=== PATIENT | male | born 1940 | race Caucasian/White ===

== ENCOUNTER 2017-09-02 09:45 | Emergency (ER) | payer MEDICARE, BC ==
[2017-09-02] MEDS ORDERED: Diltiazem IV* 5 MG/ML 5 ML VIAL (for loading dose/IV Push) (25 MG) IV SLOW PU ONE (10:20)
[2017-09-02] MEDS ORDERED: Diltiazem DRIP* 100 MG/100 ML ADDV.BAG IVPB ONE (10:20)
[2017-09-02 10:42] LABS: ABS Basophils 0.1 10^3/ul (0-0.2); ABS Eosinophils 0.1 10^3/ul (0-0.6); ABS Lymphocytes 1.2 10^3/ul (1.0-4.8); ABS Monocytes 0.6 10^3/ul (0-0.8); ABS Neutrophils 2.1 10^3/ul (1.5-7.7); ABS Nucleated RBC 0 10^3/ul; Hematocrit 44 % (42-52); Hemoglobin 15.4 g/dl (14.0-18.0); Lymphocyte % 30.1 % (25-47); Mean Corpuscular HGB Conc 35 g/dl (31-36); Mean Corpuscular Hemoglobin 33 pg (27-31); Mean Corpuscular Volume 92 fL (80-94); Mean Platelet Volume 9.5 um3 (7.4-10.4); Nucleated Red Blood Cells % 0.1; Platelet Count 118 10^3/ul (150-450); Red Blood Count 4.72 10^6/ul (4.00-5.40); Red Cell Distribution Width 13 % (10.5-15); White Blood Count 4.1 10^3/ul (3.5-10.8)
[2017-09-02 10:47] LABS: INR 1.14 (0.77-1.02)
[2017-09-02 10:59] LABS: EGFR Non-African American 84.2 (>60)
[2017-09-02] MEDS ORDERED: Diltiazem IV VIAL* 125 MG in NS 0.9% 100 ML* 100 ML IV ONE (11:00)
--- NOTE | 2017-09-02 11:00 | RAD ---
HISTORY: a-fib COMPARISONS: November 27, 2014 VIEWS: 1: frontal portable view of the chest at 10:45 AM FINDINGS: LINES AND TUBES: None. CARDIOMEDIASTINAL SILHOUETTE: The cardiomediastinal silhouette is normal for portable technique. PLEURA: The costophrenic angles are sharp. No pleural abnormalities are noted. LUNG PARENCHYMA: The lungs are clear. ABDOMEN: The upper abdomen is clear. There is no subphrenic gas. BONES AND SOFT TISSUES: No bone or soft tissue abnormalities are noted. IMPRESSION: NO ACTIVE CARDIOPULMONARY DISEASE.
[2017-09-02] MEDS ORDERED: fentaNYL* 50 MCG/ML 2 ML VIAL (100 MCG VIAL) ONE (13:27)
[2017-09-02] MEDS ORDERED: Midazolam* 1 MG/ML 10 ML VIAL (10 MG) ONE (13:28)
--- NOTE | 2017-09-02 14:54 | CARD ---
CC: Dr. Lopez; Dr. Estrada PROCEDURE REPORT: DATE OF PROCEDURE: 09/02/17. PROCEDURE: Cardioversion. INDICATIONS: This is a 76-year-old gentleman who recognized that he was in atrial fibrillation this am and presented to the emergency room. He was n.p.o. since last night. Informed consent was obtained. Patient was fasting. He was premedicated with 4 mg of Versed and 25 mcg of fentanyl. A single synchronized biphasic shock of 120 joules was applied with successful conversion to sinus rhythm. IMPRESSION: Successful conversion to sinus rhythm from atrial fibrillation. Given the patient's complaints of lightheadedness on losartan, I suggested that we continue with metoprolol 50 mg 1/2 a tablet a day and hold the losartan temporarily. We will have to reevaluate his blood pressure requirements and optimal medications as an outpatient. He has an outpatient visit scheduled in September. [id number]/[facility] #: [id number] MTDD
--- NOTE | 2017-09-02 14:54 | CONS ---
CC: Dr. Manpreet Lopez; Dr. Estrada CARDIOLOGY CONSULTATION: DATE OF CONSULT: 09/02/17 HISTORY OF PRESENT ILLNESS: This is a 76-year-old gentleman with a history of hypertension, paroxysmal atrial fibrillation, and recurrent AFib. He had his last cardioversion in May. He said recently he was started on losartan and has had problems with lightheadedness. He cut both his losartan and Toprol in half at times because of dizziness and has had trouble tolerating his medications. He has also had a tendency towards bradycardia on his medications. He says that yesterday he felt tired, but did not realize he was in AFib. He said this morning he noticed that he was irregular and he was lightheaded with standing. He has had no chest pain, no syncope or orthopnea. No interval new medical problems. PAST MEDICAL HISTORY: Includes hyperlipidemia, paroxysmal atrial fibrillation, hypertension, sinus node dysfunction. MEDICATIONS: Include: 1. Toprol 50 mg a day. He has been cutting this in half. 2. Losartan 100 mg a day. He has been cutting this in half. 3. Xarelto 20 mg in the evening. 4. Simvastatin 20 mg at night. ALLERGIES: He has no known drug allergies. ROS x10 negative except as above. PHYSICAL EXAM: He is a well-developed, well-nourished gentleman, in no apparent distress. No significant JVD. Cardiac Exam: S1, S2, without murmurs , gallops, or rubs. Chest was clear. Extremities: No edema. His blood pressure is 111/63 with a heart rate in the 70s after getting IV diltiazem. IMPRESSION AND PLAN: I discussed with the patient options for treatment. Given that he has been on anticoagulation, the duration of the atrial fibrillation is relatively brief, I suggested attempt at cardioversion, which was agreeable to the patient. We also discussed the importance of adjusting his regimen to try to avoid varying his beta-kj and beta-kj withdrawal. He also a tendency towards tachy and di and may require a pacemaker at some point. For the time being, I would recommend the following: We would suggest reducing his metoprolol to 25 mg a day given his predisposition to bradycardia. He is to hold his losartan for the time being and we will reevaluate his blood pressures. He may require a lower dose. He is to avoid caffeine and alcohol as he has been doing. He is to avoid dehydration. He understands the potential need for pacemaker if he continues to have tachy and bradyarrhythmias. Medical decision making moderately complex. [id number]/[facility] #: [id number] SHAYNA
[2017-09-02 15:17] VITALS: BP 101/64
--- NOTE | 2017-09-02 18:19 | ED ---
Sravan Banks Tariq, scribed for Vaibhav Dee MD on 09/02/17 at 1029 . HPI Cardiac - HPI Summary HPI Summary: A 76 y/o male presents to the ED c/o palpitations characterized as irregular, similar to episodes of A Fib. Pt stated that he not normally in A-fib. Additionally notes that when he stands up, he becomes dizzy. He also feels pressure in his chest, blood pressure is fluctuating and "it doesn't feel right ". His BP has been on the low end all week. Laying down helps alleviate Sx. In the past he has been cardioverted. Currently on Cirralto. PMHx HTN - on metoprolol. - History of Current Complaint Chief Complaint: EDDysrhythmPalp Stated Complaint: IRREGULAR HEARTBEAT Time Seen by Provider: 09/02/17 10:08 Hx Obtained From: Patient Onset/Duration: Started Days Ago, Still Present Timing: Intermittent Current Severity: None Pain Intensity: 0 Pain Scale Used: 0-10 Numeric Chest Pain Radiates: No Character: Pressure/Squeezing - Pressure Aggravating Factor(s): Nothing Alleviating Factor(s): Rest, Position - Laying down Associated Signs and Symptoms: Positive: Palpitations, Other: - fluctuating BP - Allergy/Home Medications Allergies/Adverse Reactions: Allergies Allergy/AdvReac Type Severity Reaction Status Date / Time No Known Allergies Allergy Verified 09/02/17 09:59 Home Medications: Home Medications Glucosamine CAP (NF) 1 cap PO DAILY 09/02/17 [History Confirmed 09/02/17] Losartan TAB* [Cozaar TAB*] 100 mg PO QAM 09/02/17 [History Confirmed 09/02/17] Metoprolol Succinate XL TAB* [Toprol XL TAB*] 50 mg PO DAILY 09/02/17 [History Confirmed 09/02/17] Nesbit-3 Fatty Acids (Nf) [Fish Oil (NF)] 1,000 mg PO DAILY 09/02/17 [History Confirmed 09/02/17] Rivaroxaban TAB(*) [Xarelto 20 mg] 20 mg PO DAILY 09/02/17 [History Confirmed ] PMH/Surg Hx/FS Hx/Imm Hx Endocrine/Hematology History: Denies: Hx Anticoagulant Therapy, Other Endocrine/Hematological Disorders Cardiovascular History: Reports: Hx Atrial Fibrillation, Hx Hypercholesterolemia , Hx Hypertension, Other Cardiovascular Problems/Disorders - Heart Murmur; A-Fib Respiratory History: Denies: Other Respiratory Problems/Disorders GI History: Denies: Other GI Disorders History: Denies: Other Problems/Disorders Musculoskeletal History: Reports: Hx Arthritis - GENERALIZED Denies: Other Musculoskeletal History Sensory History: Reports: Hx Cataracts - BILATERAL, Hx Contacts or Glasses Denies: Hx Hearing Aid Opthamlomology History: Reports: Hx Cataracts - BILATERAL, Hx Contacts or Glasses Neurological History: Denies: Other Neuro Impairments/Disorders Psychiatric History: Denies: Other Psychiatric Issues/Disorders - Cancer History Cancer Type, Location and Year: prostate Hx Hematologic Symptoms: No Hx Chemotherapy: No Hx Radiation Therapy: No - Surgical History Surgery Procedure, Year, and Place: Prostate removed Hx Anesthesia Reactions: No Infectious Disease History: Yes Infectious Disease History: Denies: Traveled Outside the [place] in Last 30 Days - Family History Known Family History: Positive: Other - CHF Negative: Diabetes - Social History Alcohol Use: Occasionally Substance Use Type: Reports: None Smoking Status (MU): Never Smoked Tobacco Review of Systems Constitutional: Other - BP fluctuating Cardiovascular: Other - Pressure in chest Positive: Palpitations Neurological: Other - Dizziness All Other Systems Reviewed And Are Negative: Yes Physical Exam - Summary Physical Exam Summary: Appearance: The patient is well-nourished in no acute distress and in no acute pain. Skin: The skin is warm and dry and skin color reflects adequate perfusion. HEENT: The head is normocephalic and atraumatic. The pupils are equal and reactive. The conjunctivae are clear and without drainage. Nares are patent and without drainage. Mouth reveals moist mucous membranes and the throat is without erythema and exudate. The external ears are intact. The ear canals are patent and without drainage. The tympanic membranes are intact. Neck: The neck is supple with full range of motion and non-tender. There are no carotid bruits. There is no neck vein distension. Respiratory: Chest is non-tender. Lungs are clear to auscultation and breath sounds are symmetrical and equal. Cardiovascular: Heart rate is rapid and regularly irregular. There is no murmur or rub auscultated. There is no peripheral edema and pulses are symmetrical and equal. Abdomen: The abdomen is soft and non-tender. There are normal bowel sounds heard in all four quadrants and there is no organomegaly palpated. Musculoskeletal: There is no back tenderness noted. Extremities are non-tender with full range of motion. There is good capillary refill. There is no peripheral edema or calf tenderness elicited. Neurological: Patient is alert and oriented to person, place and time. The patient has symmetrical motor strength in all four extremities. Cranial nerves are grossly intact. Deep tendon reflexes are symmetrical and equal in all four extremities. Psychiatric: The patient has an appropriate affect and does not exhibit any anxiety or depression. Triage Information Reviewed: Yes Vital Signs On Initial Exam: Initial Vitals Temp Pulse Resp BP Pulse Ox 97.3 F 47 16 136/101 97 09/02/17 09:52 09/02/17 09:52 09/02/17 09:52 09/02/17 09:52 09/02/17 09:52 Vital Signs Reviewed: Yes Diagnostics - Vital Signs Vital Signs Temp Pulse Resp BP Pulse Ox 09/02/17 10:01 89 19 106/72 98 09/02/17 09:52 97.3 F 47 16 136/101 97 - Laboratory Lab Results: Lab Results 09/02/17 09/02/17 09/02/17 Range/Units 10:35 10:35 10:35 WBC 4.1 (3.5-10.8) 10^3/ul RBC 4.72 (4.00-5.40) 10^6/ul Hgb 15.4 (14.0-18.0) g/dl Hct 44 (42-52) % MCV 92 (80-94) fL MCH 33 H (27-31) pg MCHC 35 (31-36) g/dl RDW 13 (10.5-15) % Plt Count 118 L (150-450) 10^3/ul MPV 9.5 (7.4-10.4) um3 Neut % (Auto) 51.3 (38-83) % Lymph % (Auto) 30.1 (25-47) % [place] % (Auto) 13.4 H (0-7) % Eos % (Auto) 3.0 (0-6) % Baso % (Auto) 2.2 H (0-2) % Absolute Neuts (auto) 2.1 (1.5-7.7) 10^3/ul Absolute Lymphs (auto) 1.2 (1.0-4.8) 10^3/ul Absolute Monos (auto) 0.6 (0-0.8) 10^3/ul Absolute Eos (auto) 0.1 (0-0.6) 10^3/ul Absolute Basos (auto) 0.1 (0-0.2) 10^3/ul Absolute Nucleated RBC 0 10^3/ul Nucleated RBC % 0.1 INR (Anticoag Therapy) (0.77-1.02) Sodium 137 (135-145) mmol/L Potassium 4.0 (3.5-5.0) mmol/L Chloride 107 (101-111) mmol/L Carbon Dioxide 25 (22-32) mmol/L Anion Gap 5 (2-11) mmol/L BUN 18 (6-24) mg/dL Creatinine 0.88 (0.67-1.17) mg/dL Est GFR ( Amer) 108.3 (>60) Est GFR (Non-Af Amer) 84.2 (>60) BUN/Creatinine Ratio 20.5 H (8-20) Glucose 120 H (70-100) mg/dL Lactic Acid 1.2 (0.5-2.0) mmol/L Calcium 8.9 (8.6-10.3) mg/dL Magnesium 2.1 (1.9-2.7) mg/dL Total Bilirubin 0.30 (0.2-1.0) mg/dL AST 18 (13-39) U/L ALT 14 (7-52) U/L Alkaline Phosphatase 43 (34-104) U/L Troponin I 0.01 (<0.04) ng/mL Total Protein 6.7 (6.4-8.9) g/dL Albumin 3.7 (3.2-5.2) g/dL Globulin 3.0 (2-4) g/dL Albumin/Globulin Ratio 1.2 (1-3) TSH 1.26 (0.34-5.60) mcIU/mL 09/02/17 Range/Units 10:35 WBC (3.5-10.8) 10^3/ul RBC (4.00-5.40) 10^6/ul Hgb (14.0-18.0) g/dl Hct (42-52) % MCV (80-94) fL MCH (27-31) pg MCHC (31-36) g/dl RDW (10.5-15) % Plt Count (150-450) 10^3/ul MPV (7.4-10.4) um3 Neut % (Auto) (38-83) % Lymph % (Auto) (25-47) % [place] % (Auto) (0-7) % Eos % (Auto) (0-6) % Baso % (Auto) (0-2) % Absolute Neuts (auto) (1.5-7.7) 10^3/ul Absolute Lymphs (auto) (1.0-4.8) 10^3/ul Absolute Monos (auto) (0-0.8) 10^3/ul Absolute Eos (auto) (0-0.6) 10^3/ul Absolute Basos (auto) (0-0.2) 10^3/ul Absolute Nucleated RBC 10^3/ul Nucleated RBC % INR (Anticoag Therapy) 1.14 H (0.77-1.02) Sodium (135-145) mmol/L Potassium (3.5-5.0) mmol/L Chloride (101-111) mmol/L Carbon Dioxide (22-32) mmol/L Anion Gap (2-11) mmol/L BUN (6-24) mg/dL Creatinine (0.67-1.17) mg/dL Est GFR ( Amer) (>60) Est GFR (Non-Af Amer) (>60) BUN/Creatinine Ratio (8-20) Glucose (70-100) mg/dL Lactic Acid (0.5-2.0) mmol/L Calcium (8.6-10.3) mg/dL Magnesium (1.9-2.7) mg/dL Total Bilirubin (0.2-1.0) mg/dL AST (13-39) U/L ALT (7-52) U/L Alkaline Phosphatase (34-104) U/L Troponin I (<0.04) ng/mL Total Protein (6.4-8.9) g/dL Albumin (3.2-5.2) g/dL Globulin (2-4) g/dL Albumin/Globulin Ratio (1-3) TSH (0.34-5.60) mcIU/mL Result Diagrams: 09/02/17 10:35 09/02/17 10:35 Lab Statement: Any lab studies that have been ordered have been reviewed, and results considered in the medical decision making process. - Radiology CXR Xray Interpretation: No Acute Changes Radiology Interpretation Completed By: Radiologist - IMPRESSION: NO ACTIVE CARDIOPULMONARY DISEASE. ED PHYSICIAN REVIEWED THIS RADIOLOGY REPORT. - EKG 0957 Cardiac Rate: Tachycardia - 126 bpm EKG Rhythm: Atrial Fibrillation EKG Interpretation: A-Fib with RVR Disposition - Course Course Of Treatment: Mr. Gonzalez presents complaining that he he is in atrial fibrillation. His only symptom is that he gets dizzy when he stands up and he just doesn't feel right. He denies chest pain or shortness of breath. This all began today. He was noted to be in atrial fibrillation with a variable rate from the 120s to the 150s. He was started on a Cardizem drip and this controlled his rate. He came in a little bit hypotensive and this improved with rate control. Dr. Lopez was contacted and came to the department and cardioverted him under conscious sedation. He tolerated this well and remained in a sinus rhythm while he recovered from conscious sedation. - Diagnoses Provider Diagnoses: Atrial fibrillation - Physician Notifications Discussed Care Of Patient With: Manpreet Lopez Time Discussed With Above Provider: 12:52 Instructed by Provider To: Other - Will come in and cardiovert the patient. - Critical Care Time Critical Care Time: 30-74 min Discharge - Sign-Out/Discharge Documenting (check all that apply): Discharge/Admit/Transfer - Discharge - Discharge Plan Condition: Stable Disposition: HOME Patient Education Materials: A-fib (Atrial Fibrillation) (ED) Referrals: Manpreet Lopez MD [Medical Doctor] - 3 Days Yemi Estrada MD [Primary Care Provider] - 3 Days Additional Instructions: RETURN TO ED FOR ANY NEW OR WORSENING SYMPTOMS. - Billing Disposition and Condition Condition: STABLE Disposition: Home The documentation as recorded by the Sravan pardo Tariq accurately reflects the service I personally performed and the decisions made by me, Vaibhav Dee MD.
== END 2017-09-02 15:26 | disposition home or self-care (01) ==
LOC: ED 09:45
DX: I48.91 Unspecified atrial fibrillation (principal); R42 Dizziness and giddiness; I95.9 Hypotension, unspecified; I10 Essential (primary) hypertension; Z79.899 Other long term (current) drug therapy; Z79.01 Long term (current) use of anticoagulants
CPT/HCPCS: 36415; 71045; 80053; 83605; 83735; 84443; 84484; 85025; 85610; 93005; 96374; 99285; J2250; J3010

== ENCOUNTER 2018-12-22 11:10 | Emergency (ER) | payer MEDICARE, BC ==
--- NOTE | 2018-12-22 12:08 | ED ---
Palpitations / Dysrhythmia - HPI Summary HPI Summary: The patient is a y/o M presenting to [facility] with a chief complaint of irregular heart rate today when he had a sudden onset of dizziness while at rest. He reports he is usually in normal sinus rhythm, but he has been experiencing intermittent episodes of atrial fibrillation. He additionally c/o shortness of but denies chest pain and edema. Currently, his symptoms are rated 0/10 in severity. He has not used anything to treat the afib for short-term, but he does have medication that he can use. He states he last had to be cardioverted approximately five weeks ago, but usually he has the episodes about once a year for the last ten years. His cullet washer is Dr. Lopez. PMHx: afib, HLD, HTN, heart murmur. Nonsmoker, occasional EtOH, no substance use. Medications reviewed (Eliquis, Metoprolol). Allergies noted. - History of Current Complaint Chief Complaint: EDDysrhythmPalp Hx Obtained From: Patient Onset/Duration: Sudden Onset, Lasting Minutes, Still Present Timing: Constant - this episode Severity Initially: Moderate Severity Currently: Moderate Character: Irregular Aggravating: Nothing Alleviating: Nothing Associated Signs & Symptoms: Dizzy, Shortness of Breath - Allergy/Home Medications Allergies/Adverse Reactions: Allergies Allergy/AdvReac Type Severity Reaction Status Date / Time No Known Allergies Allergy Verified 12/22/18 11:17 PMH/Surg Hx/FS Hx/Imm Hx Endocrine/Hematology History: Denies: Hx Anticoagulant Therapy, Hx Diabetes, Other Endocrine/Hematological Disorders Cardiovascular History: Reports: Hx Atrial Fibrillation, Hx Hypercholesterolemia , Hx Hypertension, Hx Valvular Heart Disease - "murmur all my life", Other Cardiovascular Problems/Disorders - Heart Murmur; A-Fib Denies: Hx Angina, Hx Coronary Artery Disease, Hx Myocardial Infarction, Hx Pacemaker/ICD, Hx Peripheral Vascular Disease Respiratory History: Denies: Hx Asthma, Hx Chronic Obstructive Pulmonary Disease (COPD), Other Respiratory Problems/Disorders GI History: Denies: Other GI Disorders History: Denies: Other Problems/Disorders Musculoskeletal History: Reports: Hx Arthritis - GENERALIZED Denies: Other Musculoskeletal History Sensory History: Reports: Hx Cataracts - BILATERAL Denies: Hx Contacts or Glasses, Hx Hearing Aid Opthamlomology History: Reports: Hx Cataracts - BILATERAL Denies: Hx Contacts or Glasses Neurological History: Denies: Hx Transient Ischemic Attacks (TIA), Other Neuro Impairments/ Disorders Psychiatric History: Denies: Other Psychiatric Issues/Disorders - Cancer History Cancer Type, Location and Year: prostate Hx Hematologic Symptoms: No Hx Chemotherapy: No Hx Radiation Therapy: No - Surgical History Surgical History: Yes Surgery Procedure, Year, and Place: Prostate removed Hx Anesthesia Reactions: No Infectious Disease History: No Infectious Disease History: Denies: Traveled Outside the [place] in Last 30 Days - Family History Known Family History: Positive: Other - CHF Negative: Diabetes - Social History Alcohol Use: Occasionally Hx Substance Use: No Substance Use Type: Reports: None Hx Tobacco Use: No Smoking Status (MU): Never Smoked Tobacco Review of Systems Positive: Palpitations - irregular heart rate. Negative: Chest Pain Positive: Shortness Of Breath Negative: Edema Neurological: Other - dizziness All Other Systems Reviewed And Are Negative: Yes Physical Exam - Summary Physical Exam Summary: VITAL SIGNS: Reviewed. GENERAL: Patient is a well-developed and nourished male who is lying comfortable in the stretcher. Patient is not in any acute respiratory distress. HEAD AND FACE: No signs of trauma. No ecchymosis, hematomas or skull depressions. No sinus tenderness. EYES: PERRLA, EOMI x 2, No injected conjunctiva, no nystagmus. EARS: Hearing grossly intact. Ear canals and tympanic membranes are within normal limits. MOUTH: Oropharynx within normal limits. NECK: Supple, trachea is midline, no adenopathy, no JVD, no carotid bruit, no c- spine tenderness, neck with full ROM. CHEST: Symmetric, no tenderness at palpation. LUNGS: Clear to auscultation bilaterally. No wheezing or crackles. CVS: Irregular rate and rhythm, S1 and S2 present, no murmurs or gallops appreciated. ABDOMEN: Soft, non-tender. No signs of distention. No rebound, no guarding, and no masses palpated. Bowel sounds are normal. EXTREMITIES: FROM in all major joints, no edema, no cyanosis or clubbing. NEURO: Alert and oriented x 3. No acute neurological deficits. Speech is normal and follows commands. SKIN: Dry and warm. Triage Information Reviewed: Yes Vital Signs On Initial Exam: Initial Vitals Temp Pulse Resp BP Pulse Ox 97.5 F 87 16 128/85 100 12/22/18 11:15 12/22/18 11:15 12/22/18 11:15 12/22/18 11:15 12/22/18 11:15 Vital Signs Reviewed: Yes Procedures - Sedation Patient Received Moderate/Deep Sedation with Procedure: No Diagnostics - Vital Signs Vital Signs Temp Pulse Resp BP Pulse Ox 12/22/18 11:15 97.5 F 87 16 128/85 100 - Laboratory Lab Statement: Any lab studies that have been ordered have been reviewed, and results considered in the medical decision making process. - EKG 1110 Cardiac Rate: Other Rate - 101 bpm EKG Rhythm: Atrial Fibrillation EKG Comparison: No Significant Change - Similar to previous taken on 11/25/18. Summary of EKG Findings: EKG at 1110 reveals atrial fibrillation at 101 bpm. ED physician has reviewed and interpreted this EKG. Re-Evaluation - Re-Evaluation First Eval Re-Evaluation Time: 12:00 Change: Unchanged Comment: We discussed all results and plan for discharge with follow up with Dr. Lopez. Course/Dx - Course Assessment/Plan: Patient is a 77 y/o M with chief complaint of atrial fibrillation this morning wtih dizziness and shortness of breath. No chest pain or edema. Patient is in rate controlled atrial fibrillation ranging between 80 and 100 bpm. Patient requests cardioversion. He is asymptomatic. I discussed my physical exam and findings with and Dr. Sebastian from cardiology and he is unable to do the cardioversion today. Therefore, he recommends for the patient to be discharged home and to be nothing by mouth starting at midnight tonight and follow-up tomorrow with cardiology for possible cardioversion. I discussed all the findings and test results with the patient. Patient was instructed to return to the emergency room immediately if any of the symptoms return worsens. Plan of care was discussed with the patient and understands and agrees. All questions were answered at patient satisfaction. There were no further complaints or concerns. Lung exam before discharge: CTA B/L. Good air exchange. No wheezing or crackles heard. CVS: S1 and S2 present. No murmurs appreciated. Patient is alert and oriented x 3. Patient is hemodynamically stable. Patient will be discharged home with follow up PCP in the next 2-3 days. - Diagnoses Provider Diagnoses: Atrial fibrillation - Physician Notifications Discussed Care Of Patient With: Abhinav Sebastian - cardiology Time Discussed With Above Provider: 12:05 Instructed by Provider To: Other - Dr. Sebastian suggests cardioversion as outpatient with Dr. Lopez tomorrow as it cannot be done today with NPO starting at midnight tonight. Discharge ED - Sign-Out/Discharge Documenting (check all that apply): Patient Departure - Patient will be discharged home. - Discharge Plan Condition: Stable Disposition: HOME Patient Education Materials: A-fib (Atrial Fibrillation) (DC) Referrals: Yemi Estrada MD [Primary Care Provider] - Manpreet Lopez MD [Medical Doctor] - 1 Day Additional Instructions: Follow up with Dr. Lopez tomorrow. Please refrain from eating or drinking after midnight tonight. Return to the emergency department for any new or worsening symptoms. - Billing Disposition and Condition Condition: STABLE Disposition: Home - Attestation Statements Document Initiated by Sean: Yes Documenting Scribe: Alivia Wilson Provider For Whom Sean is Documenting (Include Credential): Dr. Trey Zavala MD Scribe Attestation: IAlivia scribed for Dr. Trey Zavala MD on 12/22/18 at 1844. Scribe Documentation Reviewed: Yes Provider Attestation: The documentation as recorded by the Alivia pardo accurately reflects the service I personally performed and the decisions made by me, Dr. Trey Zavala MD Status of Scribe Document: Viewed
[2018-12-22 12:13] VITALS: BP 128/86
--- OUTSIDE RECORDS SUMMARY | 2018-12-22 12:26 | XMS REPORT | Continuity of Care Document ---
:1940 External Reference #:[id number] Author Name Manpreet Lopez M.D. (transmitted by agent of provider Swathi Ibarra ) Address [address] [place] [id number] Care Team Providers Name Role Phone Yemi Estrada MD - Internal Care Team Information [employer]r Medicine Problems Active Problems Provider Date Mitral and aortic incompetence Manpreet Lopez M.D. Onset: 03/27/2012 Pure hypercholesterolemia Manpreet Lopez M.D. Onset: 03/27/2012 Benign essential hypertension Manpreet Lopez M.D. Onset: 03/27/2012 Atrial fibrillation Manpreet Lopez M.D. Onset: 03/27/2012 Social History Type Date Description Comments Sex Unknown Tobacco Use Start: Unknown chew long cut pack everyother day ETOH Use 08/18/2015 Occasionally consumes alcohol Tobacco Use Start: Unknown Patient has never smoked Recreational Drug Use Never Used Drugs Smoking Status Reviewed: 12/02/18 Patient has never smoked Exercise Type/Frequency Exercises regularly Allergies, Adverse Reactions, Alerts Active Allergies Reaction Severity Comments Date Losartan Potassium Dizziness 04/17/2018 Medications Active Medications SIG Qnty Indications Ordering Provider Date Atenolol 1 by mouth 90tabs Manpreet Steve 12/02/2018 25mg Tablets every day Mor Lopez Eliquis 1 by mouth 60tabs Manpreet Steve 04/22/2018 5mg Tablets twice a day Mor Lopez Glucosamine 1 by mouth Unknown 500mg every day Capsules Fish Oil + D3 1 by mouth Unknown 1000mg every day Capsules History Medications Multaq 1 tab by mouth 2x 14tabs Yancy AzevedoKarie Brijesh, 07/26/2018 - 400mg daily as needed N.P. 07/28/2018 Tablets with an episode of afib Immunizations Description No Information Available Vital Signs Date Vital Result Comment 12/02/2018 10:25am Height 73 inches 6'1" Weight 200.50 lb with shoes Heart Rate 56 /min BP Systolic Sitting 138 mmHg ule reg cuff BP Diastolic Sitting 84 mmHg ule reg cuff BP Systolic Standing 134 mmHg ule reg cuff BP Diastolic Standing 84 mmHg ule reg cuff BMI (Body Mass Index) 26.4 kg/m2 Ejection Fraction 60-65% echo 03/26/13 11/22/2018 10:13am Height 73 inches 6'1" Weight 198.25 lb with shoes Heart Rate 120 /min BP Systolic Sitting 112 mmHg Lue (Regular cuff) BP Diastolic Sitting 60 mmHg Lue (Regular cuff) BP Systolic Standing 90 mmHg BP Diastolic Standing 54 mmHg BMI (Body Mass Index) 26.2 kg/m2 Results Test Date Facility Test Result H/L Range Note CBC Auto 11/25/2018 [facility] White Blood 6.2 10^3/uL Normal 3.5-10.[address] [place] [address] [phone] Red Blood Count 5.04 10^6/uL Normal 4.18-5.48 Hemoglobin 16.1 g/dL Normal 14.0-18.0 Hematocrit 47 % Normal 42-52 Mean Corpuscular Volume 92 fL Normal 80-94 Mean Corpuscular Hemoglobin 32 pg High 27-31 Mean Corpuscular HGB Conc 35 g/dL Normal 31-36 Red Cell Distribution Width 14 % Normal 10-15 Platelet Count 186 10^3/uL Normal 150-450 Mean Platelet Volume 9.0 fL Normal 7.4-10.4 Abs Neutrophils 4.1 10^3/uL Normal 1.5-7.7 Abs Lymphocytes 1.3 10^3/uL Normal 1.0-4.8 Abs Monocytes 0.5 10^3/uL Normal 0-0.8 Abs Eosinophils 0.3 10^3/uL Normal 0-0.6 Abs Basophils 0.1 10^3/uL Normal 0-0.2 Abs Nucleated RBC 0.0 10^3/uL Granulocyte % 65.9 % Lymphocyte % 20.9 % Monocyte % 7.4 % Eosinophil % 4.6 % Basophil % 1.2 % Nucleated Red Blood Cells % 0.1 Basic Metabolic 11/25/2018 [facility] Sodium 140 mmol/L Normal 135-145 Panel [address] [place] [address] [phone] Potassium 4.4 mmol/L Normal 3.5-5.0 Chloride 106 mmol/L Normal 101-111 Co2 Carbon Dioxide 27 mmol/L Normal 22-32 Anion Gap 7 mmol/L Normal 2-11 Glucose 130 mg/dL High 70-100 Blood Urea Nitrogen 16 mg/dL Normal 6-24 Creatinine 0.94 mg/dL Normal 0.67-1.17 BUN/Creatinine Ratio 17.0 Normal 8-20 Calcium 9.0 mg/dL Normal 8.6-10.3 Egfr Non- 77.8 >60 Egfr 94.2 >60 1 Inr/Protime 11/25/2018 [facility] Inr 1.12 High 0.82-1.09 2 [address] [place] [address] [phone] 1 Because ethnic data is not always readily available, this report includes an eGFR for both -Americans and non- Americans. The National Kidney Disease Education Program (NKDEP) does not endorse the use of the MDRD equation for patients that are not between the ages of 18 and 70, are , have extremes of body size, muscle mass, or nutritional status, or are non- or non-. According to the National Kidney Foundation, irrespective of diagnosis, the stage of the disease is based on the level of kidney function: Stage Description GFR(mL/min/1.73 m(2)) 1 Kidney damage with normal or decreased GFR 90 2 Kidney damage with mild decrease in GFR 60-89 3 Moderate decrease in GFR 30-59 4 Severe decrease in GFR 15-29 5 Kidney failure <15 (or dialysis) 2 Standard intensity warfarin therapeutic range: 2.0-3.0 High intensity warfarin therapeutic range: 2.5-3.5 Procedures Date Code Description Status 12/02/2018 83762 EKG Tracing & Interpretation Completed 11/25/2018 82093 Cardioversion Completed 11/22/2018 32868 EKG Tracing & Interpretation Completed 11/22/2018 63508 EKG Tracing & Interpretation Completed Medical Devices Description No Information Available Encounters Type Date Location Provider Dx Diagnosis Office Visit 07/26/2018 [facility] Yancy Coley, I48.0 Paroxysmal atrial 11:30a N.P. fibrillation R42 Dizziness and giddiness I10 Essential (primary) hypertension R00.1 Bradycardia, unspecified E78.00 Pure hypercholesterolemia, unspecified Assessments Date Code Description Provider 12/02/2018 I48.0 Paroxysmal atrial fibrillation Manpreet Lopez M.D. 12/02/2018 R42 Dizziness and giddiness Manpreet Lopez M.D. 12/02/2018 I10 Essential (primary) hypertension Manpreet Lopez M.D. 12/02/2018 R00.1 Bradycardia, unspecified Manpreet Lopez M.D. 11/22/2018 I48.0 Paroxysmal atrial fibrillation Manpreet Lopez M.D. 11/22/2018 I48.0 Paroxysmal atrial fibrillation Nurse Visit cc 07/26/2018 I48.0 Paroxysmal atrial fibrillation Yancy Coley, N.P. 07/26/2018 R42 Dizziness and giddiness Yancy Coley, N.P. 07/26/2018 I10 Essential (primary) hypertension Yancy Coley, N.P. 07/26/2018 R00.1 Bradycardia, unspecified Yancy Coley, N.P. 07/26/2018 E78.00 Pure hypercholesterolemia, unspecified Yancy Coley, N.P. Plan of Treatment Future Appointment(s):01/08/2019 10:30 am - Yancy Coley, N.P. at [facility]12/02/2018 - Manpreet Lopez M.D.I48.0 Paroxysmal atrial fibrillationFollow up:ov Yancy 4-6 weeks ov JFM 10 mR42 Dizziness and [id number] Essential (primary) styfuoujphcmM91.1 Bradycardia, unspecified Functional Status Description No Information Available Mental Status Description No Information Available Referrals Description No Information Available
--- OUTSIDE RECORDS SUMMARY | 2018-12-22 12:26 | XMS REPORT | Continuity of Care Document ---
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 with an episode of afib Eliquis 1 by mouth twice 60tabs Manpreet Steve 04/22/2018 5mg Tablets a day Mor Lopez Toprol XL 1 tab by mouth Manpreet Steve 09/10/2017 50mg Tablets every day Mor Lopez ER 24HR Glucosamine 1 by mouth every Unknown 500mg day Capsules Fish Oil + D3 1 by mouth every Unknown 1000mg day Capsules Immunizations Description No Information Available Vital Signs Date Vital Result Comment 11/22/2018 10:13am Height 73 inches 6'1" Weight 198.25 lb with shoes Heart Rate 120 /min BP Systolic Sitting 112 mmHg Lue (Regular cuff) BP Diastolic Sitting 60 mmHg Lue (Regular cuff) BP Systolic Standing 90 mmHg BP Diastolic Standing 54 mmHg BMI (Body Mass Index) 26.2 kg/m2 07/26/2018 11:27am Height 73 inches 6'1" Weight 203.25 lb with shoes Heart Rate 66 /min BP Systolic 138 mmHg BP Diastolic 76 mmHg BP Systolic Sitting 132 mmHg BP Diastolic Sitting 72 mmHg BMI (Body Mass Index) 26.8 kg/m2 Ejection Fraction 55-60 05/20/13 Echo Results Test Date Facility Test Result H/L Range Note CBC Auto 11/25/2018 [facility] White Blood 6.2 10^3/uL Normal 3.5-10.[address] [place] [address] [phone] Red Blood Count 5.04 10^6/uL Normal 4.18-5.48 [...] Blood Cells % 0.1 Basic Metabolic 11/25/2018 [facility] Sodium 140 mmol/L Normal 135-[address] [place] [address] [phone] Potassium 4.4 mmol/L Normal 3.5-5.0 Chloride 106 mmol/L Normal 101-111 Co2 Carbon Dioxide 27 mmol/L Normal 22-32 Anion Gap 7 mmol/L Normal 2-11 Glucose 130 mg/dL High 70-100 Blood Urea Nitrogen 16 mg/dL Normal 6-24 Creatinine 0.94 mg/dL Normal 0.67-1.17 BUN/Creatinine Ratio 17.0 Normal 8-20 Calcium 9.0 mg/dL Normal 8.6-10.3 Egfr Non- 77.8 >60 Egfr 94.2 >60 1 Inr/Protime 11/25/2018 [facility] Inr 1.12 High 0.82-1.09 [address] [place] [address] [phone] 1 Because ethnic data is not always [...] range: 2.5-3.5 Procedures Date Code Description Status 11/25/2018 75462 Cardioversion Completed 11/22/2018 52233 EKG Tracing & Interpretation Completed 11/22/2018 22971 EKG Tracing & Interpretation Completed Medical Devices Description No Information Available Encounters Type Date Location Provider Dx Diagnosis Office Visit 07/26/2018 [facility] Yancy Coley, I48.0 Paroxysmal atrial 11:30a N.P. fibrillation R42 Dizziness and giddiness I10 Essential (primary) hypertension R00.1 Bradycardia, unspecified E78.00 Pure hypercholesterolemia, unspecified Assessments Date Code Description Provider 11/22/2018 I48.0 Paroxysmal atrial fibrillation Manpreet Lopez M.D. 11/22/2018 I48.0 Paroxysmal atrial fibrillation Nurse Visit cc 07/26/2018 I48.0 Paroxysmal atrial fibrillation Yancy Coley, N.P. 07/26/2018 R42 Dizziness and giddiness Yancy Coley, N.P. 07/26/2018 I10 Essential (primary) hypertension Yancy Coley, N.P. 07/26/2018 R00.1 Bradycardia, unspecified Yancy Coley, N.P. 07/26/2018 E78.00 Pure hypercholesterolemia, unspecified Yancy Coley, N.P. Plan of Treatment No Information Available Functional Status Description No Information Available Mental Status Description No Information Available Referrals Description No Information Available
== END 2018-12-22 12:22 | disposition home or self-care (01) ==
LOC: ED 11:10
DX: I48.91 Unspecified atrial fibrillation (principal); R42 Dizziness and giddiness; R06.02 Shortness of breath; E78.00 Pure hypercholesterolemia, unspecified; I10 Essential (primary) hypertension; Z85.46 Personal history of malignant neoplasm of prostate
CPT/HCPCS: 93005; 99282

== ENCOUNTER 2018-12-31 17:45 | Inpatient (IN) | payer MEDICARE, BC ==
[2018-12-31] MEDS ORDERED: NS 0.9% 1000 ML** 1,000 ML IV ONE (18:16)
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
--- OUTSIDE RECORDS SUMMARY | 2018-12-31 18:37 | XMS REPORT | Continuity of Care Document ---
:1940 External Reference #:[id number] Author Name Yancy Coley N.P. (transmitted by agent of provider Regine Chou) Address [address] [place] [id number] Care Team Providers Name Role Phone Yemi Estrada MD - Internal Care Team Information Yarn Examiner Skeins [phone] Medicine Problems Active Problems Provider Date Mitral [...] Result H/L Range Note CBC Auto 11/25/2018 [facility] White Blood 6.2 10^3/uL Normal 3.5-10.[address] [place] [address] [phone] Red Blood Count 5.04 10^6/uL Normal 4.18-5.48 [...] Blood Cells % 0.1 Basic Metabolic 11/25/2018 [facility] Sodium 140 mmol/L Normal 135-145 Panel [address] [place] [address] [phone] Potassium 4.4 mmol/L Normal 3.5-5.0 Chloride 106 mmol/L Normal 101-111 Co2 Carbon Dioxide 27 mmol/L Normal 22-32 Anion Gap 7 mmol/L Normal 2-11 Glucose 130 mg/dL High 70-100 Blood Urea Nitrogen 16 mg/dL Normal 6-24 Creatinine 0.94 mg/dL Normal 0.67-1.17 BUN/Creatinine Ratio 17.0 Normal 8-20 Calcium 9.0 mg/dL Normal 8.6-10.3 Egfr Non- 77.8 >60 Egfr 94.2 >60 1 Inr/Protime 11/25/2018 [facility] Inr 1.12 High 0.82-1.09 2 [address] [place] [address] [phone] 1 Because ethnic data is not always [...] 2.5-3.5 Procedures Date Code Description Status 12/02/2018 04243 EKG Tracing & Interpretation Completed 11/25/2018 96123 Moderate Sedation Services; Same Phys Intl 15 Mins; PT >= Completed 5 Years 11/25/2018 02643 Cardioversion Completed 11/25/2018 91036 Cardioversion Completed 11/22/2018 46061 EKG Tracing & Interpretation Completed 11/22/2018 24777 EKG Tracing & Interpretation Completed Medical Devices Description No Information Available Encounters Type Date Location Provider Dx Diagnosis Office Visit 12/02/2018 [facility] Manpreet Steve I48.0 Paroxysmal atrial 10:40a Mor Lopez fibrillation R42 Dizziness and giddiness I10 Essential (primary) hypertension R00.1 Bradycardia, unspecified Office Visit 07/26/2018 11:30a [facility] Yancy Lion I48.0 Paroxysmal atrial Foster, N.P. fibrillation R42 Dizziness and giddiness I10 Essential (primary) hypertension R00.1 Bradycardia, unspecified E78.00 Pure hypercholesterolemia, unspecified Assessments Date Code Description Provider 12/02/2018 I48.0 Paroxysmal atrial fibrillation Manpreet Lopez M.D. 12/02/2018 R42 Dizziness and giddiness Manpreet Lopez M.D. 12/02/2018 I10 Essential (primary) hypertension Manpreet Lopez M.D. 12/02/2018 R00.1 Bradycardia, unspecified Manpreet Lopez M.D. 11/25/2018 I48.0 Paroxysmal atrial fibrillation Aryan Graf DO [facility] 11/22/2018 I48.0 Paroxysmal atrial fibrillation Manpreet Lopez M.D. 11/22/2018 I48.0 Paroxysmal atrial fibrillation Nurse Visit 07/26/2018 I48.0 Paroxysmal atrial fibrillation Yancy Coley, N.P. 07/26/2018 R42 Dizziness and giddiness Yancy Coley, N.P. 07/26/2018 I10 Essential (primary) hypertension Yancy Coley, N.P. 07/26/2018 R00.1 Bradycardia, unspecified Yancy Coley, N.P. 07/26/2018 E78.00 Pure hypercholesterolemia, unspecified Yancy Coley, N.P. Plan of Treatment Future Appointment(s):01/08/2019 10:30 am - Yancy Coley, N.P. at [facility]12/02/2018 - Manpreet Lopez M.D.I48.0 Paroxysmal atrial fibrillationFollow up:ov Yancy 4-6 weeks ov JFM 10 mR42 Dizziness and [id number] Essential (primary) [id number] Bradycardia, unspecified Functional Status Description No Information Available Mental Status Description No Information Available Referrals Description No Information Available
--- OUTSIDE RECORDS SUMMARY | 2018-12-31 18:37 | XMS REPORT | Continuity of Care Document ---
:1940 External Reference #:[id number] Author Name Yancy Coley N.P. (transmitted by agent of provider Regine Chou) Address [address] [place] [phone] Care Team Providers Name Role Phone Yemi Estrada MD - Internal Care Team Information Er Medical Technician Medicine Problems Active Problems Provider Date Mitral [...] Result H/L Range Note CBC Auto 11/25/2018 [facility] [place] White Blood 6.2 10^3/uL Normal 3.5-10.[address] [place] [address] [phone] Red Blood Count 5.04 10^6/uL Normal 4.18-5.48 [...] Blood Cells % 0.1 Basic Metabolic 11/25/2018 [facility] Sodium 140 mmol/L Normal 135-145 Panel [address] [place] [address] [phone] Potassium 4.4 mmol/L Normal 3.5-5.0 Chloride 106 mmol/L Normal 101-111 Co2 Carbon Dioxide 27 mmol/L Normal 22-32 Anion Gap 7 mmol/L Normal 2-11 Glucose 130 mg/dL High 70-100 Blood Urea Nitrogen 16 mg/dL Normal 6-24 Creatinine 0.94 mg/dL Normal 0.67-1.17 BUN/Creatinine Ratio 17.0 Normal 8-20 Calcium 9.0 mg/dL Normal 8.6-10.3 Egfr Non- 77.8 >60 Egfr 94.2 >60 1 Inr/Protime 11/25/2018 [facility] Inr 1.12 High 0.82-1.09 2 [address] [place] [address] [phone] 1 Because ethnic data is not always [...] 2.5-3.5 Procedures Date Code Description Status 12/02/2018 24107 EKG Tracing & Interpretation Completed 11/25/2018 38654 Moderate Sedation Services; Same Phys Intl 15 Mins; PT >= Completed 5 Years 11/25/2018 00433 Cardioversion Completed 11/25/2018 19687 Cardioversion Completed 11/22/2018 99985 EKG Tracing & Interpretation Completed 11/22/2018 38616 EKG Tracing & Interpretation Completed Medical Devices Description No Information Available Encounters Type Date Location Provider Dx Diagnosis Office Visit 12/02/2018 [facility] Manpreet Steve I48.0 Paroxysmal atrial 10:40a Mor Lopez fibrillation R42 Dizziness and giddiness I10 Essential (primary) hypertension R00.1 Bradycardia, unspecified Office Visit 07/26/2018 11:30a [facility] Yancy Lion I48.0 Paroxysmal atrial Foster, N.P. [...] I48.0 Paroxysmal atrial fibrillation Aryan Graf DO [facility] 11/22/2018 I48.0 Paroxysmal atrial fibrillation Manpreet Lopez [...] 10:30 am - Yancy Coley, N.P. at [facility]12/02/2018 - Manpreet Lopez M.D.I48.0 Paroxysmal atrial fibrillationFollow up:ov Yancy 4-6 weeks ov JFM 10 mR42 Dizziness and [id number] Essential (primary) zhnaclkolirjF17.1 Bradycardia, unspecified Functional Status Description No Information Available Mental Status Description No Information Available Referrals Description No Information Available
--- OUTSIDE RECORDS SUMMARY | 2018-12-31 18:37 | XMS REPORT | Continuity of Care Document ---
:1940 External Reference #:[id number] Author Name Yancy Coley NDima (transmitted by agent of provider Swathi Ibarra) Address [address] [place] [id number] Care Team Providers Name Role Phone Yemi Estrada MD - Internal Care Team Information [place] In [phone] Medicine Problems Active Problems Provider Date Mitral [...] Use Never Used Drugs Smoking Status Reviewed: 12/30/18 Patient has never smoked Exercise Type/Frequency Does not exercise Allergies, Adverse Reactions, Alerts Active Allergies Reaction Severity Comments Date Losartan Potassium Dizziness 04/17/2018 Medications Active Medications SIG Qnty Indications Ordering Provider Date Losartan Potassium 1 tab by mouth 30tabs I10 Yancy Coley, 12/30/2018 25mg daily N.P. Tablets Multaq 1 by mouth 180tabs Yancy Coley, 12/26/2018 400mg Tablets twice a day N.P. Atenolol 1/2 by mouth 90tabs Manpreet Steve 12/02/2018 25mg Tablets every day Mor Lopez 1 by mouth 60tabs Manpreet Steve 04/22/2018 5mg Tablets twice a day Mor Lopez Glucosamine 1 by mouth Unknown 500mg every day Capsules Fish Oil + D3 1 by mouth Unknown 1000mg every day Capsules History Medications Multaq 1 tab by mouth 2x 14tabs Yancy Coley, 07/26/2018 - 400mg daily as needed N.P. 07/28/2018 Tablets with an episode of afib Immunizations Description No Information Available Vital Signs Date Vital Result Comment 12/30/2018 1:07pm Height 73 inches 6'1" Weight 202.38 lb with shoes/clothes Heart Rate 62 /min radial,regular BP Systolic Sitting 144 mmHg LA, reg cuff BP Diastolic Sitting 78 mmHg LA, reg cuff BP Systolic Standing 150 mmHg LA, reg cuff BP Diastolic Standing 80 mmHg LA, reg cuff BMI (Body Mass Index) 26.7 kg/m2 Ejection Fraction 55%-60% stress echo 05/20/13 12/24/2018 8:27am Height 73 inches 6'1" Weight 202.00 lb Heart Rate 103 /min BP Systolic Sitting 122 mmHg lue reg cuff BP Diastolic Sitting 64 mmHg lue reg cuff BP Systolic Standing 90 mmHg lue reg cuff BP Diastolic Standing 60 mmHg lue reg cuff Respiratory Rate 16 /min BMI (Body Mass Index) 26.6 kg/m2 Ejection Fraction 60-65% echo. 03/26/13 Results Test Date Facility Test Result H/L Range Note Laboratory test 12/24/2018 [facility] Magnesium 2.0 mg/dL Normal 1.9-2.[address] [place] [address] [phone] CBC Auto Diff 11/25/2018 [facility] White Blood 6.2 10^3/uL Normal 3.5-10.[address] [place] [address] [phone] Red Blood Count 5.04 10^6/uL Normal 4.18-5.48 [...] Blood Cells % 0.1 Basic Metabolic 11/25/2018 [facility] Sodium 140 mmol/L Normal 135-145 Panel [address] [place] [address] [phone] Potassium 4.4 mmol/L Normal 3.5-5.0 Chloride 106 mmol/L Normal 101-111 Co2 Carbon Dioxide 27 mmol/L Normal 22-32 Anion Gap 7 mmol/L Normal 2-11 Glucose 130 mg/dL High 70-100 Blood Urea Nitrogen 16 mg/dL Normal 6-24 Creatinine 0.94 mg/dL Normal 0.67-1.17 BUN/Creatinine Ratio 17.0 Normal 8-20 Calcium 9.0 mg/dL Normal 8.6-10.3 Egfr Non- 77.8 >60 Egfr 94.2 >60 1 Inr/Protime 11/25/2018 [facility] Inr 1.12 High 0.82-1.09 2 [address] [place] [address] [phone] 1 Because ethnic data is not always [...] range: 2.5-3.5 Procedures Date Code Description Status 12/30/2018 83014 EKG Tracing & Interpretation Completed 12/24/2018 10877 EKG Tracing & Interpretation Completed 12/24/2018 62855 Cardioversion Completed 12/02/2018 79608 EKG Tracing & Interpretation Completed 11/25/2018 01402 Moderate Sedation Services; Same Phys Intl 15 Mins; PT >= Completed 5 Years 11/25/2018 93422 Cardioversion Completed 11/25/2018 42399 Cardioversion Completed 11/22/2018 74524 EKG Tracing & Interpretation Completed 11/22/2018 72165 EKG Tracing & Interpretation Completed Medical Devices Description No Information Available Encounters Type Date Location Provider Dx Diagnosis Office Visit 12/30/2018 [facility] Yancy S. Foster, I48.0 Paroxysmal atrial 1:30p N.P. fibrillation R42 Dizziness and giddiness I10 Essential (primary) hypertension E78.00 Pure hypercholesterolemia, unspecified Office Visit 12/24/2018 8:30a [facility] Yancy S. I48.0 Paroxysmal atrial Of Upper Inspector Foster, N.P. fibrillation R42 Dizziness and giddiness I10 Essential (primary) hypertension R00.1 Bradycardia, unspecified Office Visit 12/02/2018 10:40a [facility] Manpreet Steve I48.0 Paroxysmal atrial Mor Lopez fibrillation R42 Dizziness and giddiness I10 Essential (primary) hypertension R00.1 Bradycardia, unspecified Office Visit 07/26/2018 11:30a [facility] Yancy S. I48.0 Paroxysmal atrial Foster, N.P. fibrillation R42 Dizziness and giddiness I10 Essential (primary) hypertension R00.1 Bradycardia, unspecified E78.00 Pure hypercholesterolemia, unspecified Assessments Date Code Description Provider 12/30/2018 I48.0 Paroxysmal atrial fibrillation Yancy S. Foster, N.P. 12/30/2018 R42 Dizziness and giddiness Yancy S. Brijesh, N.P. 12/30/2018 I10 Essential (primary) hypertension Yancy SKarie Coley, N.P. 12/30/2018 E78.00 Pure hypercholesterolemia, unspecified Yancy S. Brijesh, N.P. 12/24/2018 I48.0 Paroxysmal atrial fibrillation Manpreet Lopez M.D. 12/24/2018 I48.0 Paroxysmal atrial fibrillation Umberto Eaton M.D. 12/24/2018 I48.0 Paroxysmal atrial fibrillation Yancy S. Brijesh, N.P. 12/24/2018 R42 Dizziness and giddiness Yancy S. Brijesh, N.P. 12/24/2018 I10 Essential (primary) hypertension Yancy S. Brijesh, N.P. 12/24/2018 R00.1 Bradycardia, unspecified Yancy S. rBijesh, N.P. 12/02/2018 I48.0 Paroxysmal atrial fibrillation Manpreet Lopez M.D. 12/02/2018 R42 Dizziness and giddiness Manpreet Lopez M.D. 12/02/2018 I10 Essential (primary) hypertension Manpreet Lopez M.D. 12/02/2018 R00.1 Bradycardia, unspecified Manpreet Lopez M.D. 11/25/2018 I48.0 Paroxysmal atrial fibrillation Aryan Graf DO [facility] 11/22/2018 I48.0 Paroxysmal atrial fibrillation Manpreet Lopez M.D. 11/22/2018 I48.0 Paroxysmal atrial fibrillation Nurse Visit cc 07/26/2018 I48.0 Paroxysmal atrial fibrillation Yancy S. Brijesh, N.P. 07/26/2018 R42 Dizziness and giddiness Yancy S. Brijesh, N.P. 07/26/2018 I10 Essential (primary) hypertension Yancy S. Brijesh, N.P. 07/26/2018 R00.1 Bradycardia, unspecified Yancy S. Foster, N.P. 07/26/2018 E78.00 Pure hypercholesterolemia, unspecified Yancy S. Brijesh, N.P. Plan of Treatment 12/30/2018 - Yancy Azevedo. Brijesh, N.P.I48.0 Paroxysmal atrial fibrillationRecommendations:you are in regular rhythm continue multaq and [id number] Dizziness and oocxcrbxuN02 Essential (primary) hypertensionNew Medication:Losartan Potassium 25 mg - 1 tab by mouth dailyFollow up:[facility] 2019Recommendations:BP high recommend restarting losartan We will check in and see how BP is on new medication. Check BP1-2 x daily at least 1-2hr after medication. Have your cuff checked at dr maurice office.E78.00 Pure hypercholesterolemia, unspecified Functional Status Description No Information Available Mental Status Description No Information Available Referrals Description No Information Available
--- OUTSIDE RECORDS SUMMARY | 2018-12-31 18:37 | XMS REPORT | Continuity of Care Document ---
:1940 External Reference #:[id number] Author Name Yancy Coley N.P. (transmitted by agent of provider Huyen Posey) Address [address] [place] [phone] Care Team Providers Name Role Phone Yemi Estrada MD - Internal Care Team Information [employer] Medicine Problems Active Problems Provider Date Mitral [...] Use Never Used Drugs Smoking Status Reviewed: 12/24/18 Patient has never smoked Exercise Type/Frequency Does [...] 1 tab by mouth 2x 14tabs Yancy Ayad Coley, 07/26/2018 - 400mg daily as needed N.P. 07/28/2018 Tablets with an episode of afib Immunizations Description No Information Available Vital Signs Date Vital Result Comment 12/24/2018 8:27am Height 73 inches 6'1" Weight 202.00 lb Heart Rate 103 /min BP Systolic Sitting 122 mmHg lue reg cuff BP Diastolic Sitting 64 mmHg lue reg cuff BP Systolic Standing 90 mmHg lue reg cuff BP Diastolic Standing 60 mmHg lue reg cuff Respiratory Rate 16 /min BMI (Body Mass Index) 26.6 kg/m2 Ejection Fraction 60-65% echo. 03/26/13 12/02/2018 10:25am Height 73 inches 6'1" Weight 200.50 lb with shoes Heart Rate 56 /min BP Systolic Sitting 138 mmHg ule reg cuff BP Diastolic Sitting 84 mmHg ule reg cuff BP Systolic Standing 134 mmHg ule reg cuff BP Diastolic Standing 84 mmHg ule reg cuff BMI (Body Mass Index) 26.4 kg/m2 Ejection Fraction 60-65% echo 03/26/13 Results Test Date Facility Test Result H/L Range Note CBC Auto 11/25/2018 [facility] White Blood 6.2 10^3/uL Normal 3.5-10.[address] [place] [address] [phone] Red Blood Count 5.04 10^6/uL Normal 4.18-5.48 [...] Blood Cells % 0.1 Basic Metabolic 11/25/2018 [facility] Sodium 140 mmol/L Normal 135-145 Panel [address] [place] [address] [phone] Potassium 4.4 mmol/L Normal 3.5-5.0 Chloride 106 mmol/L Normal 101-111 Co2 Carbon Dioxide 27 mmol/L Normal 22-32 Anion Gap 7 mmol/L Normal 2-11 Glucose 130 mg/dL High 70-100 Blood Urea Nitrogen 16 mg/dL Normal 6-24 Creatinine 0.94 mg/dL Normal 0.67-1.17 BUN/Creatinine Ratio 17.0 Normal 8-20 Calcium 9.0 mg/dL Normal 8.6-10.3 Egfr Non- 77.8 >60 Egfr 94.2 >60 1 Inr/Protime 11/25/2018 [facility] Inr 1.12 High 0.82-1.09 2 [address] [place] [address] [phone] 1 Because ethnic data is not always [...] range: 2.5-3.5 Procedures Date Code Description Status 12/24/2018 36310 EKG Tracing & Interpretation Completed 12/02/2018 36604 EKG Tracing & Interpretation Completed 11/25/2018 56707 Moderate Sedation Services; Same Phys Intl 15 Mins; PT >= Completed 5 Years 11/25/2018 20563 Cardioversion Completed 11/25/2018 60582 Cardioversion Completed 11/22/2018 54226 EKG Tracing & Interpretation Completed 11/22/2018 20851 EKG Tracing & Interpretation Completed Medical Devices Description No Information Available Encounters Type Date Location Provider Dx Diagnosis Office Visit 12/02/2018 [facility] Manpreet Steve I48.0 Paroxysmal atrial 10:40a Mor Lopez fibrillation R42 Dizziness and giddiness I10 Essential (primary) hypertension R00.1 Bradycardia, unspecified Office Visit 07/26/2018 11:30a [facility] Yancy Lion I48.0 Paroxysmal atrial Foster, N.P. fibrillation R42 Dizziness and giddiness I10 Essential (primary) hypertension R00.1 Bradycardia, unspecified E78.00 Pure hypercholesterolemia, unspecified Assessments Date Code Description Provider 12/24/2018 I48.0 Paroxysmal atrial fibrillation Yancy S. Foster, N.P. 12/24/2018 R42 Dizziness and giddiness Yancy S. Foster, N.P. 12/24/2018 I10 Essential (primary) hypertension Yancy S. Foster, N.P. 12/24/2018 R00.1 Bradycardia, unspecified Yancy S. Foster, N.P. 12/02/2018 I48.0 Paroxysmal atrial fibrillation Manpreet Lopez M.D. 12/02/2018 R42 Dizziness and giddiness Manpreet Lopez M.D. 12/02/2018 I10 Essential (primary) hypertension Manpreet Lopez M.D. 12/02/2018 R00.1 Bradycardia, unspecified Manpreet Lopez M.D. 11/25/2018 I48.0 Paroxysmal atrial fibrillation Aryna Graf DO [facility] 11/22/2018 I48.0 Paroxysmal atrial fibrillation Manpreet Lopez M.D. 11/22/2018 I48.0 Paroxysmal atrial fibrillation Nurse Visit cc 07/26/2018 I48.0 Paroxysmal atrial fibrillation Yancy S. Brijesh, N.P. 07/26/2018 R42 Dizziness and giddiness Yancy Coley, N.P. 07/26/2018 I10 Essential (primary) hypertension Yancy Coley, N.P. 07/26/2018 R00.1 Bradycardia, unspecified Yancy Coley, N.P. 07/26/2018 E78.00 Pure hypercholesterolemia, unspecified Yancy Coley, N.P. Plan of Treatment Future Appointment(s):12/30/2018 1:30 pm - [facility]12/24/2018 - Yancy Coley N.P.I48.0 Paroxysmal atrial fibrillationNew Orders:Cardioversion, Scheduled: 12/24/18Follow up:move up OV w / me 1 weeks w/ EKG 09/2019 [id number] Dizziness and fiplewvluC56 Essential (primary ) argewwcnoivyO43.1 Bradycardia, unspecified Functional Status Description No Information Available Mental Status Description No Information Available Referrals Description No Information Available
[2018-12-31 18:53] LABS: ABS Eosinophils 0.1 10^3/ul (0-0.6); ABS Lymphocytes 1.1 10^3/ul (1.0-4.8); ABS Monocytes 0.6 10^3/ul (0-0.8); ABS Neutrophils 8.7 10^3/ul (1.5-7.7); Eosinophil % 0.9 %; Hematocrit 42 % (42-52); Hemoglobin 14.7 g/dL (14.0-18.0); Lymphocyte % 10.5 %; Mean Corpuscular HGB Conc 35 g/dL (31-36); Mean Corpuscular Hemoglobin 32 pg (27-31); Mean Corpuscular Volume 92 fL (80-94); Mean Platelet Volume 9.2 fL (7.4-10.4); Platelet Count 119 10^3/uL (150-450); Red Blood Count 4.62 10^6 /uL (4.18-5.48); Red Cell Distribution Width 14 % (10-15); White Blood Count 10.6 10^3/uL (3.5-10.8)
[2018-12-31 19:01] LABS: INR 1.09 (0.82-1.09)
[2018-12-31 19:10] LABS: ALT 23 U/L (7-52); AST 24 U/L (13-39); Albumin/Globulin Ratio 1.3 (1-3); Alkaline Phosphatase 41 U/L (34-104); Amylase 72 U/L (29-103); Anion Gap 5 mmol/L (2-11); BUN/Creatinine Ratio 15.7 (8-20); Blood Urea Nitrogen 17 mg/dL (6-24); CO2 Carbon Dioxide 28 mmol/L (22-32); Calcium 9.3 mg/dL (8.6-10.3); Chloride 106 mmol/L (101-111); Creatine Kinase 252 U/L (10-223); EGFR Non-African American 66.1 (>60); Glucose 114 mg/dL (70-100); Potassium 4.4 mmol/L (3.5-5.0); Sodium 139 mmol/L (135-145)
[2018-12-31 19:11] LABS: Troponin I 0.01 ng/mL (<0.04)
[2018-12-31] MEDS ORDERED: Iohexol 300* (CONTRAST) 10 ML SDV IV ONE (19:12)
[2018-12-31 19:18] LABS: Alcohol < 10 mg/dL (<10)
[2018-12-31] MEDS ORDERED: Acetaminophen TAB* 325 MG PO ONE (20:17)
[2018-12-31] MEDS ORDERED: oxyCODONE/Acetamin 5/325 MG* TAB PO ONE (20:46)
[2018-12-31] MEDS ORDERED: Dronedarone TAB* 400 MG PO ONE (21:03)
[2018-12-31 21:12] LABS: Urine Appearance Clear; Urine Bilirubin Negative (Negative); Urine Blood Negative (Negative); Urine Color Straw; Urine Glucose Negative (Negative); Urine Ketones Negative (Negative); Urine Nitrite Negative (Negative); Urine Protein Negative (Negative); Urine Specific Gravity 1.034 (1.010-1.030); Urine Urobilinogen Negative (Negative)
[2018-12-31] MEDS ORDERED: Morphine 4 MG/ML VIAL (1 ml) 4 MG/ML VIAL IV ONE (22:39)
[2018-12-31] MEDS ORDERED: Ondansetron INJ* 2 MG/ML VIAL IV ONE (22:40)
[2019-01-01 01:13] LABS: Magnesium 2.2 mg/dL (1.9-2.7)
[2019-01-01] MEDS ORDERED: Morphine INJ* 2 MG/ML 1 ML SYRINGE (TWO MG - NEW SYRINGE VERSION) IV PRN (01:14)
[2019-01-01] MEDS ORDERED: Acetaminophen TAB* 325 MG PO PRN (01:15)
--- NOTE | 2019-01-01 04:12 | HP ---
HISTORY AND PHYSICAL: DATE OF ADMISSION: 12/31/18 ADMITTING PROVIDER: Asif Deshpande MD PRIMARY CARE PROVIDER: Yemi Estrada MD CONSULTING ORTHOPEDIC SURGEON: Dr. Tejeda. CHIEF COMPLAINT: Left-sided pelvic pain after falling 12 feet from a ladder. HISTORY OF PRESENT ILLNESS: Vaibhav Gonzalez is a 78-year-old male with past medical history of paroxysmal atrial fibrillation (on Eliquis; multiple cardioversions; recently started on Multaq, ), hypertension, hyperlipidemia, sinus node dysfunction. He was standing on a ladder trying to attach a strap around a tree to create a tree stand to appiah from, when he put too much of his weight on one side. He fell off the ladder down onto his left side. He immediately had pain in this left pelvis. He was eventually able to get up and hobble to his four squirse and drove it home before seeking further evaluation. At [facility] Emergency Room, he had a CT abdomen and pelvis, which on re-review showed likely nondisplaced fracture of the acetabulum and also a left sacral fracture. Dr. Tejeda was consulted by ED and reportedly recommended admission for pain control and disposition (he lives alone and may need placement) though likely nonsurgical management. Recommendation for nonweightbearing status on left leg. His pain has been controlled with Percocet. Just 3 days prior to admission, he had a successful cardioversion for symptomatic atrial fibrillation with RVR. He has had multiple cardioversions in the past. He denies any other complaints. CT head showed no acute process. C-spine showed some degenerative disc disease. PAST MEDICAL HISTORY: Paroxysmal atrial fibrillation, hypertension, hyperlipidemia, sinus node dysfunction, urinary incontinence. PAST SURGICAL HISTORY: Prostate resection, left inguinal hernia repair. MEDICATIONS: Include: 1. Apixaban 5 mg p.o. b.i.d. 2. Multaq 400 mg p.o. b.i.d. 3. Atenolol 25 mg p.o. daily. 4. Fish oil capsule daily. 5. Glucosamine 500 mg p.o. daily. ALLERGIES: No known drug allergies. 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 He is never a smoker, does not drink alcohol. No drug use. His medical surrogate is his niece, who lives in [facility]. Desires to be a full code in this circumstance. FAMILY MEDICAL HISTORY: Mother at age 100 of CHF. Father in his late 60s. He had history of brain cancer, but lived another 20 years after that was resected. Sister is in her 80s and is alive, relatively good health. He has a son aged 58 who has had some developmental delays and lives in a correction. REVIEW OF SYSTEMS: Complete 14 point review of systems is negative except as per HPI. PHYSICAL EXAMINATION GENERAL APPEARANCE: No acute distress. VITAL SIGNS: Temperature 97.4, pulse rate 65, respiratory rate 16, saturating 97% on room air, blood pressure 167/91. HEENT: Normocephalic, atraumatic. Pupils are equal, round, and reactive to light. Extraocular motions are intact. No scleral icterus. LUNGS: Clear to auscultation bilaterally with no wheezing, rales, or rhonchi. CARDIOVASCULAR: Regular rate and rhythm. No murmurs, rubs, or gallops. ABDOMEN: Soft, nontender, nondistended. EXTREMITIES: Warm, well perfused. No peripheral edema. MUSCULOSKELETAL: He has chronic pain to his left greater trochanter that is chronic, that is thought secondary to bursitis. He points to his left posterior pelvis, where he has pain that is currently well controlled. 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 He has a 5 to 6 cm superficial laceration to his right forearm. DIAGNOSTIC STUDIES/LAB DATA: White count of 10.6, hemoglobin 14.7, hematocrit 42, platelets 119, INR 1.09. Sodium 139, potassium 4.4, chloride 106, carbon dioxide 28, BUN 17, creatinine 1.08, glucose 114, lactic acid 1.2. AST 24, ALT 23, CK 252, alk phos 241, troponin 0.01. Total protein 7.0. Albumin 4.0. Lipase 78, amylase 72. Urinalysis; specific gravity elevated at 1.034. Serum alcohol less than 10. Imaging: CT brain noncontrast showed no acute intracranial pathology. Cervical spine CT demonstrated degenerative disc disease and osteoarthritis, no acute osseous injury to the cervical spine that was without contrast. CT chest, abdomen, and pelvis with IV contrast initially without atherosclerosis and no acute CT pathology, but on review, there was a linear lucency consistent with nondisplaced fracture to the anterior acetabulum with extension to the articular surface. There is also a nondisplaced fracture at the left sacrum paralleling the left SI joint. EKG showed normal sinus rhythm, Q wave in lead III and aVF, these are chronic. No ST elevations or compressions, heart rate 63. ASSESSMENT AND PLAN: Vaibhav Gonzalez is a 78-year-old male with past medical history of paroxysmal atrial fibrillation, on Eliquis, who had sustained a mechanical fall 12 feet off a ladder onto his left hip and has nondisplaced left -sided acetabular fracture and also left sacral fracture. We will follow up with Orthopedics, Dr. Tejeda recommendations in the morning. He will be nonweightbearing in left lower extremity. Initially n.p.o., though likely it will be nonoperative management. Pain control with Percocet p.r.n. and IV morphine for breakthrough pain. For his paroxysmal atrial fibrillation, continue his atenolol and Multaq and he did get a dose from Dr. Demarco of his Eliquis last night. As he is not expected to have any surgical intervention, I will continue that 5 mg p.o. b.i.d. I will check his magnesium level and will replete that as necessary. He lives alone and will likely need subacute rehab placement and physical therapy will be ordered. He is a full code. Medical surrogate is his niece, Marleni Riojas. [id number]/[facility] #: [id number] [facility]
[2019-01-01] MEDS: oxyCODONE/Acetamin 5/325 MG* TAB PO PRN ×2 (05:32→16:25)
[2019-01-01 05:50] LABS: ABS Basophils 0.1 10^3/ul (0-0.2); ABS Eosinophils 0.1 10^3/ul (0-0.6); ABS Monocytes 0.7 10^3/ul (0-0.8); ABS Neutrophils 7.5 10^3/ul (1.5-7.7); Eosinophil % 1.6 %; Hematocrit 41 % (42-52); Hemoglobin 14.3 g/dL (14.0-18.0); Lymphocyte % 10.8 %; Mean Corpuscular HGB Conc 35 g/dL (31-36); Mean Corpuscular Hemoglobin 32 pg (27-31); Mean Corpuscular Volume 92 fL (80-94); Mean Platelet Volume 9.6 fL (7.4-10.4); Platelet Count 107 10^3/uL (150-450); Red Blood Count 4.45 10^6 /uL (4.18-5.48); Red Cell Distribution Width 14 % (10-15); White Blood Count 9.3 10^3/uL (3.5-10.8)
[2019-01-01 06:12] LABS: Calcium 8.8 mg/dL (8.6-10.3); EGFR African American 87.4 (>60); EGFR Non-African American 72.3 (>60); Potassium 3.7 mmol/L (3.5-5.0)
[2019-01-01] MEDS: Apixaban* 5 MG TAB PO SCH ×2 (08:31→20:34)
[2019-01-01] MEDS: Dronedarone TAB* 400 MG PO SCH ×2 (08:33→20:34)
[2019-01-01] MEDS ORDERED: Atenolol TAB* 25 MG PO SCH (09:00)
[2019-01-01] MEDS ORDERED: Influenza VAC *QUAD* 2019-20* 0.5 ML SYRINGE IM ONE (09:00)
--- NOTE | 2019-01-01 14:04 | CONS ---
ORTHOPEDIC CONSULTATION: DATE OF CONSULT: 01/01/19 Thank you for this orthopedic consultation. CHIEF COMPLAINT: Left hip pain. HISTORY OF PRESENT ILLNESS: Mr. Gonzalez is a 78-year-old gentleman, who had a fall by report 15 feet off a ladder while trying to place a tree-hand for hunting. This occurred on 12/31/18. He immediat dano had 8/10 pain in the left groin and buttock. He was able to drive himself home on a four squires, but had to crawl into his home. He was brought here to the [facility] Emergency Room. I was consulted for a nondisplaced acetabular fracture. I did recommend nonweightbearing status and f ollow up in clinic. The patient was unable to go home and was admitted to the hospitalist team. PAST MEDICAL HISTORY: 1. Atrial fibrillation. 2. Hypertension. 3. Hyperlipidemia. 4. Sinus node dysfunction. 5. Urinary incontinence. PAST SURGICAL HISTORY: 1. Prostate resection. 2. Left inguinal hernia repair. HOME MEDICATIONS: 1. Apixaban 5 mg p.o. b.i.d. 2. Multaq 400 mg p.o. b.i.d. 3. Atenolol 25 mg p.o. daily. 4. Fish oil capsule p.o. daily. 5. Glucosamine 500 mg p.o. daily. ALLERGIES: No known drug allergies. FAMILY HISTORY: Maternal heart disease. Paternal cancer. SOCIAL HISTORY: The patient is retired. Lives alone. No tobacco, alcohol, or recreational drugs. Normally an independent ambulator. REVIEW OF SYSTEMS: Fourteen systems reviewed with the patient, positive for some left rib pain, some left lower back pain, some left groin pain or hip pain, recent fall. Negative for fevers, chills, c hest pain, shortness of breath, nausea, vomiting, and headache or dizziness. Otherwise, the patient reports review of systems is negative or not relevant. PHYSICAL EXAM: Vitals: Temperature 98.4, pulse of 102, blood pressure 127/71. General: The patient is a well-nourished male, in no apparent distress. Alert and oriented x3, pleasant mood, appropriat e affect. Chest: Unlabored breathing. Abdomen: Soft, nontender, nondistended. No tenderness with deep palpation in all 4 quadrants. Bilateral Upper Extremities: The patient can fully move his shou lders, elbows, and wrists. 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 2+ palpable radial pulses. Right Lower Extremity: Th e patient can flex at the hip. His skin is intact. Distally neurovascularly intact. Left Lower Extr emity: The patient's skin is intact. No abrasions or open wounds. He has tenderness along the SI j oint and lower lumbar paraspinal muscles, tenderness along the anterior groin. Hip flexion to 40 deg sophia with some groin pain. Distally, he has full sensation to light touch in all nerve distributions and 2+ palpable DP pulse. No edema, varicosities, or hyperreflexia. DIAGNOSTIC STUDIES/LAB DATA: Labs show this morning, 01/01/19: White blood cell 9.3, hematocrit 41, platelets 107, INR 1.09. Sodium 138, potassium 3.7, glucose 119, BUN and creatinine 14 and 1.0. Ur ine is negative. Toxicology is negative. There are multiple CTs. There is CT chest, abdomen, and pe lvis showing the anterior acetabular fracture and a nondisplaced sacral fracture. Cervical spine CT and brain CT are reported as negative. There is no obvious chest or abdominal abnormality. ASSESSMENT AND PLAN: Mr. Gonzalez is a 78-year-old gentleman, who lives alone and is on baseline anti coagulant therapy with apixaban. He had a significant fall. I do agree with his admission for obser vation. His hematocrit is remaining stable. I do think he ought to be nonweightbearing on left lower extremity. I feel that his acetabular fracture will heal with conservative treatment. I am concern ed about the fact that he has no one to care for him at home. Today, he should be mobilized with physical therapy to see if he can go home independently. If not, I would recommend a SNF rehab. I will order some plain films of the pelvis to be done before he leave s the hospital. He should follow up with me in clinic in 1 week's time. Please call [phone] for a n appointment. Thank you for this orthopedic consultation. [id number]/[facility] #: [id number]
--- NOTE | 2019-01-01 17:09 | PN ---
Subjective Date of Service: 01/01/19 Interval History: Mr. Gonzalez is feeling much better today. Pain has improved significantly. He had a good night and offers no other complaints. Denies CP, SOB. Good appetite. He believes he would be able to manage at home nonweight bearing. No concerns from nursing. Family History: Unchanged from Admission Social History: Unchanged from Admission Past Medical History: Unchanged from Admission Objective Active Medications: Acetaminophen (Tylenol Tab*) 650 mg PO Q6H PRN PAIN - MILD Apixaban (Eliquis*) 5 mg PO BID TANYA Atenolol (Tenormin Tab*) 25 mg PO DAILY TANYA Dronedarone (Multaq Tab*) 400 mg PO BID TANYA Morphine Sulfate (Morphine Inj (Syringe))*) 2 mg IV Q4H PRN PAIN - SEVERE Oxycodone/Acetaminophen (Percocet 5/325 Tab*) 1 tab PO Q6H PRN PAIN - MODERATE Oxycodone/Acetaminophen (Percocet 5/325 Tab*) 2 tab PO Q6H PRN PAIN - SEVERE Vital Signs - 8 hr 01/01/19 01/01/19 01/01/19 11:54 15:42 16:25 Temperature 98.3 F 98.3 F Pulse Rate 94 66 Respiratory 16 16 16 Rate Blood Pressure 98/58 101/53 (mmHg) O2 Sat by Pulse 95 94 Oximetry Oxygen Devices in Use Now: None Appearance: Elderly male sitting in bed in NAD Ears/Nose/Mouth/Throat: Mucous Membranes Moist Neck: NL Appearance and Movements; NL JVP, Trachea Midline Respiratory: Symmetrical Chest Expansion and Respiratory Effort, Clear to Auscultation Cardiovascular: NL Sounds; No Murmurs; No JVD Abdominal: NL Sounds; No Tenderness; No Distention Extremities: No Edema Neurological: Alert and Oriented x 3 Lines/Tubes/Other Access: Clean, Dry and Intact Peripheral IV Nutrition: Taking PO's Result Diagrams: 01/01/19 05:03 01/01/19 05:03 Assess/Plan/Problems-Billing Assessment: Mr. Gonzalez is a 78 yo M with PMH of afib, HTN, HLD, sinus node dysfunction; who presented to the ED after a fall from approx 12 feet and was found to have acetabular and pelvic fracture. - Patient Problems (1) Acetabular fracture Code(s): S32.409A - UNSP FRACTURE OF UNSP ACETABULUM, INIT FOR CLOS FX Comment : - Secondary to mechanical fall from approx 12 ft - CT shows nondisplaced left anterior acetabular fracture and nondisplaced left sacral fracture - Appreciate Ortho consult; recommends nonsurgical management - NWB LLE per [place] - PT/OT evals - If there is any bleeding, patient will need to be transferred out to a trauma center - Continue Percocet, morphine (2) Atrial fibrillation Code(s): I48.91 - UNSPECIFIED ATRIAL FIBRILLATION Comment: - Rate controlled - Continue atenolol, Multaq, Eliquis (3) Hypertension Code(s): I10 - ESSENTIAL (PRIMARY) HYPERTENSION Comment: - Normotensive - Continue atenolol (4) DVT prophylaxis Code(s): Z29.9 - ENCOUNTER FOR PROPHYLACTIC MEASURES, UNSPECIFIED Comment: - Eliquis (5) Full code status Code(s): Z78.9 - OTHER SPECIFIED HEALTH STATUS Comment: Status and Disposition: Inpatient. Anticipate d/c home vs [facility] based on PT/OT evals. Attending: Karlo Mckeon
[2019-01-01] MEDS ORDERED: Apixaban* 5 MG TAB PO ONE (21:02)
[2019-01-02 05:50] LABS: ABS Eosinophils 0.4 10^3/ul (0-0.6); ABS Monocytes 0.7 10^3/ul (0-0.8); ABS Neutrophils 7.3 10^3/ul (1.5-7.7); Eosinophil % 3.9 %; Hematocrit 40 % (42-52); Lymphocyte % 10.3 %; Mean Corpuscular HGB Conc 35 g/dL (31-36); Mean Corpuscular Hemoglobin 32 pg (27-31); Mean Corpuscular Volume 91 fL (80-94); Mean Platelet Volume 9.6 fL (7.4-10.4); Platelet Count 88 10^3/uL (150-450); Red Blood Count 4.38 10^6 /uL (4.18-5.48); Red Cell Distribution Width 14 % (10-15); White Blood Count 9.4 10^3/uL (3.5-10.8)
[2019-01-02] MEDS: oxyCODONE/Acetamin 5/325 MG* TAB PO PRN ×2 (06:47→12:00)
[2019-01-02] MEDS: Atenolol TAB* 25 MG PO SCH (08:57)
[2019-01-02] MEDS: Dronedarone TAB* 400 MG PO SCH ×2 (08:57→20:30)
[2019-01-02] MEDS: Apixaban* 5 MG TAB PO SCH ×2 (08:57→20:30)
--- NOTE | 2019-01-02 09:40 | PN ---
Subjective Date of Service: 01/02/19 Interval History: Mr. Gonzalez is feeling fine this morning. He has significant pain with movement and even just sitting on the side of the bed. When he finds a comfortable position, pain is essentially nonexistent. He is agreeable to rehab and he does have some concerns about his ability to manage at home with this level of pain. Denies CP, SOB, N/V. No concerns from nursing. Family History: Unchanged from Admission Social History: Unchanged from Admission Past Medical History: Unchanged from Admission Objective Active Medications: Acetaminophen (Tylenol Tab*) 650 mg PO Q6H PRN PAIN - MILD Apixaban (Eliquis*) 5 mg PO BID TANYA Atenolol (Tenormin Tab*) 12.5 mg PO DAILY TANYA Dronedarone (Multaq Tab*) 400 mg PO BID TANYA Morphine Sulfate (Morphine Inj (Syringe))*) 2 mg IV Q4H PRN PAIN - SEVERE Oxycodone/Acetaminophen (Percocet 5/325 Tab*) 1 tab PO Q6H PRN PAIN - MODERATE Oxycodone/Acetaminophen (Percocet 5/325 Tab*) 2 tab PO Q6H PRN PAIN - SEVERE Vital Signs - 8 hr 01/02/19 01/02/19 01/02/19 03:00 06:47 07:30 Temperature 97.5 F 97.6 F Pulse Rate 64 60 Respiratory 18 19 16 Rate Blood Pressure 143/68 138/61 (mmHg) O2 Sat by Pulse 93 95 Oximetry Oxygen Devices in Use Now: None Appearance: Elderly male sitting in bed in NAD Ears/Nose/Mouth/Throat: Mucous Membranes Moist Neck: NL Appearance and Movements; NL JVP, Trachea Midline Respiratory: Symmetrical Chest Expansion and Respiratory Effort, Clear to Auscultation Cardiovascular: NL Sounds; No Murmurs; No JVD Abdominal: NL Sounds; No Tenderness; No Distention Extremities: No Edema Neurological: Alert and Oriented x 3 Lines/Tubes/Other Access: Clean, Dry and Intact Peripheral IV Nutrition: Taking PO's Result Diagrams: 01/02/19 05:19 01/01/19 05:03 Assess/Plan/Problems-Billing Assessment: Mr. Gonzalez is a 78 yo M with PMH of afib, HTN, HLD, sinus node dysfunction; who presented to the ED after a fall from approx 12 feet and was found to have acetabular and pelvic fracture. - Patient Problems (1) Acetabular fracture Code(s): S32.409A - UNSP FRACTURE OF UNSP ACETABULUM, INIT FOR CLOS FX Comment : - Secondary to mechanical fall from approx 12 ft - CT shows nondisplaced left anterior acetabular fracture and nondisplaced left sacral fracture - Appreciate Ortho consult; recommends nonsurgical management - NWB LLE per [place] - PT/OT evals - If there is any bleeding, patient will need to be transferred out to a trauma center - Continue Percocet, morphine (2) Atrial fibrillation Code(s): I48.91 - UNSPECIFIED ATRIAL FIBRILLATION Comment: - Rate controlled - Continue atenolol, Multaq, Eliquis (3) Hypertension Code(s): I10 - ESSENTIAL (PRIMARY) HYPERTENSION Comment: - Normotensive - Continue atenolol (4) DVT prophylaxis Code(s): Z29.9 - ENCOUNTER FOR PROPHYLACTIC MEASURES, UNSPECIFIED Comment: - Eliquis (5) Full code status Code(s): Z78.9 - OTHER SPECIFIED HEALTH STATUS Comment: Status and Disposition: Inpatient. Anticipate need for [facility]. Attending: Karlo Mckeon
--- NOTE | 2019-01-02 11:15 | PN ---
Progress Note - Progress Note Date of Service: 01/02/19 SOAP: Subjective: []Pt seen at bedside he is feeling well without complaints. L groin pain is tolerable. No abd pain, chest pain, SOB, dizziness, light headedness or confusion Objective: []Gen: NAD, appears well LLE: no significant ecchymosis, mild superficial abrasions to the lower leg. Tender along the anterior groin. Sitting comfortably in a chair currently. Sensation is intact to light touch throughout the extremity. D2+. Able to f/e at ankle, knee without pain. Assessment: []Left acetabular fracture Plan: []Strict NWB LLE Mobilize with PT, if unable to safely ambulate with NWB status needs SNF FU Dr Tejeda in clinic in 1 week Vital Signs Temp 98.1 F 01/02/19 11:06 Pulse 62 01/02/19 11:06 Resp 16 01/02/19 11:06 BP 112/53 01/02/19 11:06 Pulse Ox 93 01/02/19 11:06 Intake & Output 01/01/19 01/02/19 01/02/19 18:59 06:59 18:59 Intake Total 640 1300 600 Output Total 750 0 450 Balance -110 1300 150 Intake: Oral 640 1300 600 Output: Urine 750 0 450 Other: Estimated Void Medium # Voids 2 Laboratory Last Values WBC 9.4 10^3/uL (3.5-10.8) 01/02/19 05:19 RBC 4.38 10^6 /uL (4.18-5.48) 01/02/19 05:19 Hgb 14.0 g/dL (14.0-18.0) 01/02/19 05:19 Hct 40 % (42-52) L 01/02/19 05:19 MCV 91 fL (80-94) 01/02/19 05:19 MCH 32 pg (27-31) H 01/02/19 05:19 MCHC 35 g/dL (31-36) 01/02/19 05:19 RDW 14 % (10-15) 01/02/19 05:19 Plt Count 88 10^3/uL (150-450) L 01/02/19 05:19 MPV 9.6 fL (7.4-10.4) 01/02/19 05:19 Neut % (Auto) 77.6 % 01/02/19 05:19 Lymph % (Auto) 10.3 % 01/02/19 05:19 [place] % (Auto) 7.9 % 01/02/19 05:19 Eos % (Auto) 3.9 % 01/02/19 05:19 Baso % (Auto) 0.3 % 01/02/19 05:19 Absolute Neuts (auto) 7.3 10^3/ul (1.5-7.7) 01/02/19 05:19 Absolute Lymphs (auto) 1.0 10^3/ul (1.0-4.8) 01/02/19 05:19 Absolute Monos (auto) 0.7 10^3/ul (0-0.8) 01/02/19 05:19 Absolute Eos (auto) 0.4 10^3/ul (0-0.6) 01/02/19 05:19 Absolute Basos (auto) 0.0 10^3/ul (0-0.2) 01/02/19 05:19 Absolute Nucleated RBC 0.0 10^3/ul 01/02/19 05:19 Nucleated RBC % 0.0 01/02/19 05:19 Hem Pathologist Commnt 01/02/19 05:19 INR (Anticoag Therapy) 1.09 (0.82-1.09) 12/31/18 18:46 Sodium 138 mmol/L (135-145) 01/01/19 05:03 Potassium 3.7 mmol/L (3.5-5.0) 01/01/19 05:03 Chloride 105 mmol/L (101-111) 01/01/19 05:03 Carbon Dioxide 28 mmol/L (22-32) 01/01/19 05:03 Anion Gap 5 mmol/L (2-11) 01/01/19 05:03 BUN 14 mg/dL (6-24) 01/01/19 05:03 Creatinine 1.00 mg/dL (0.67-1.17) 01/01/19 05:03 Est GFR ( Amer) 87.4 (>60) 01/01/19 05:03 Est GFR (Non-Af Amer) 72.3 (>60) 01/01/19 05:03 BUN/Creatinine Ratio 14.0 (8-20) 01/01/19 05:03 Glucose 119 mg/dL (70-100) H 01/01/19 05:03 Lactic Acid 1.2 mmol/L (0.5-2.0) 12/31/18 18:46 Calcium 8.8 mg/dL (8.6-10.3) 01/01/19 05:03 Magnesium 2.2 mg/dL (1.9-2.7) 12/31/18 18:46 Total Bilirubin 0.50 mg/dL (0.2-1.0) 12/31/18 18:46 AST 24 U/L (13-39) 12/31/18 18:46 ALT 23 U/L (7-52) 12/31/18 18:46 Alkaline Phosphatase 41 U/L (34-104) 12/31/18 18:46 Total Creatine Kinase 252 U/L (10-223) H 12/31/18 18:46 Troponin I 0.01 ng/mL (<0.04) 12/31/18 18:46 Total Protein 7.0 g/dL (6.4-8.9) 12/31/18 18:46 Albumin 4.0 g/dL (3.2-5.2) 12/31/18 18:46 Globulin 3.0 g/dL (2-4) 12/31/18 18:46 Albumin/Globulin Ratio 1.3 (1-3) 12/31/18 18:46 Amylase 72 U/L (29-103) 12/31/18 18:46 Lipase 78 U/L (11.0-82.0) 12/31/18 18:46 Urine Color Straw 12/31/18 20:55 Urine Appearance Clear 12/31/18 20:55 Urine pH 7.0 (5-9) 12/31/18 20:55 Ur Specific [place] 1.034 (1.010-1.030) H 12/31/18 20:55 Urine Protein Negative (Negative) 12/31/18 20:55 Urine Ketones Negative (Negative) 12/31/18 20:55 Urine Blood Negative (Negative) 12/31/18 20:55 Urine Nitrate Negative (Negative) 12/31/18 20:55 Urine Bilirubin Negative (Negative) 12/31/18 20:55 Urine Urobilinogen Negative (Negative) 12/31/18 20:55 Ur Leukocyte Esterase Negative (Negative) 12/31/18 20:55 Urine Glucose Negative (Negative) 12/31/18 20:55 Serum Alcohol < 10 mg/dL (<10) 12/31/18 18:46 Blood Type B Positive 12/31/18 18:40 Antibody Screen Negative 12/31/18 18:40
[2019-01-03] MEDS: Apixaban* 5 MG TAB PO SCH (09:37)
[2019-01-03] MEDS: Dronedarone TAB* 400 MG PO SCH (09:37)
[2019-01-03] MEDS: Atenolol TAB* 25 MG PO SCH (09:37)
[2019-01-03] MEDS ORDERED: Polyethylene Glycol 3350* 17 GM PACKET PO PRN (09:43)
[2019-01-03] MEDS ORDERED: Senna TAB 8.6 mg* TAB PO PRN (09:43)
[2019-01-03 11:34] VITALS: BP 108/74
--- NOTE | 2019-01-03 12:39 | DS ---
CC: Dr. Yemi Estrada; Dr. Emily Tejeda * DISCHARGE SUMMARY: DATE OF ADMISSION: 12/31/18 DATE OF DISCHARGE: 01/03/19 ATTENDING PROVIDER: Karlo Mckeon MD * (DICTATED BY LEX GUZMÁN) PRIMARY CARE PROVIDER: Dr. Yemi Estrada. CONSULTING ORTHOPEDIST: Dr. Emily Tejeda. PRIMARY DISCHARGE DIAGNOSIS: Fall with nondisplaced acetabular, possible pubic ramus, and sacral alar fracture. SECONDARY DISCHARGE DIAGNOSES: 1. Atrial fibrillation. 2. Hypertension. 3. Hyperlipidemia. 4. Sinus node dysfunction. 5. Urinary incontinence. 6. Enlarged prostate. STUDIES DONE WHILE IN THE HOSPITAL: Brain CT from 12/31/18 read as no acute intracranial pathology. Cervical spine CT from 12/31/18 read as degenerative disk disease and osteoarthritis. No acute osseous injury to the cervical spine. Chest, abdomen, and pelvis CT from 12/31/18 read as atherosclerosis. No acute CT pathology of the chest, abdomen, or pelvis. EKG shows normal sinus rhythm, no ST segment elevation or depression. Pelvis x-ray from 01/01/19 read as, again noted is a nondisplaced fracture of the left sacral ala. Left acetabular fracture noted on CT is no more visualized on the current examination. There is a questionable nondisplaced fracture of the left superior pubic ramus or the pubic symphysis. MEDICATIONS AT DISCHARGE: 1. Apixaban 5 mg p.o. b.i.d. 2. Atenolol 25 mg p.o. daily. 3. Vitamin D and fish oil 1 cap p.o. daily. 4. Glucosamine 500 mg p.o. daily. 5. Dronedarone 400 mg p.o. b.i.d. 6. Tylenol 650 mg p.o. q.6 hours as needed. 7. Docusate 100 mg p.o. b.i.d. 8. Lactulose 30 mL p.o. daily as needed. 9. Percocet 5/325 two tabs p.o. q.6 hours as needed. 10. Percocet 5/325 one tab p.o. q.6 hours as needed. 11. MiraLAX 17 g p.o. daily as needed. New medications at discharge: 1. Lactulose. 2. Docusate. 3. MiraLAX. 4. Percocet. 5. Tylenol. Medications discontinued at discharge: None. HOSPITAL COURSE: This is a brief summary of the patient's presentation. For more details, please see the history and physical from Dr. Asif Deshpande on . In brief, the patient is a 78-year-old male with past medical history significant for the above who presented to the emergency department after he fell off the ladder trying to create a tree stand from which to appiah. He did not lose consciousness. In the emergency department, he had a CT of his chest, abdomen, and pelvis, which when re-reviewed by the radiologist showed fractures as above. The patient came into the emergency department and was seen in consultation by Dr. Emily Tejeda of Orthopedics, who recommended admission to the hospital, nonweightbearing on the left lower extremity, no surgery, and rehab placement with orthopedic followup. The patient in the hospital had relatively good pain control. The patient did not have any significant drop in his hemoglobin. No significant hypotension. No dizziness on standing. No palpitations. No other laboratory or electrolyte abnormalities except for a platelet count of 88. The patient does have a known history of thrombocytopenia. The patient was stable and amenable for discharge on to [facility] for rehab. PHYSICAL EXAM ON THE DAY OF DISCHARGE: General: The patient is a 78-year-old male who appears stated age and sitting comfortably in bed, in no acute distress. Vital Signs: At the time of evaluation, temperature 97.2, pulse rate 62, respiratory rate 16, oxygen saturation 98% on room air, blood pressure . HEENT: Head normocephalic, atraumatic. Sclerae anicteric. No conjunctival injection. Nasal mucosa moist. Oral mucosa moist. No pharyngeal erythema, discharge, or exudate. Neck: Supple, nontender. No lymphadenopathy. No carotid bruits auscultated. No JVD. Cardiac: Regular rate and rhythm. No clicks, murmurs, gallops, or rubs. Pulses are 2+ in the bilateral dorsalis pedis, posterior tibialis, and radial areas. Respiratory: Clear to auscultation bilaterally. No wheezes, rales, or rhonchi. Good air exchange bilaterally. Abdomen: Soft, nontender, nondistended. Bowel sounds present and normoactive in all 4 quadrants. No hepatosplenomegaly. No abdominal bruits auscultated. No hepatojugular reflux. Genitourinary: No suprapubic or CVA tenderness. Skin: Clean, dry, and intact. No rash. Neuro: Cranial nerves II through XII intact. No focal deficits. Alert and oriented x3. Psychiatric: Pleasant and cooperative. Musculoskeletal: No deformity. Pain with any manipulation of the left lower extremity. DISCHARGE PLAN BY PROBLEM: 1. Multiple pelvic fractures. The patient has been recommended to be nonoperative for this. The patient will be nonweightbearing on his left lower extremity to allow his acetabular fracture to heal. The patient should follow up with Dr. Emily Tejeda within 1 week for continued monitoring. The patient will go to [facility] for rehab until he is able to manage nonweightbearing status on his leg at home, which he has not been able to demonstrate his ability to do. The patient should have repeat imaging per Orthopedics and pain control with Percocet and Tylenol as above. 2. Thrombocytopenia. The patient's platelet count today is 88. This is only a slight decrease from previous exam and the patient does have known history of thrombocytopenia, but never this severe. This should be worked up outpatient. The patient has no obvious signs of bleeding and his hemoglobin has not declined significantly since he has been in the hospital. The patient's Eliquis will be continued at this time; however, the patient should have a repeat CBC in 3 days for monitoring of his platelets and his Eliquis should be discontinued if his platelets go below 50. 3. Atrial fibrillation. The patient is currently in sinus rhythm. Continue the patient's Multaq, atenolol, and Eliquis. DISPOSITION: [facility]. CONDITION: Stable. LEX GUZMÁN [id number]/[facility] #: [id number] MTDD
[2019-01-03] MEDS: oxyCODONE/Acetamin 5/325 MG* TAB PO PRN (12:51)
[2019-01-03] MEDS ORDERED: Docusate CAP* 100 MG PO SCH (21:00)
--- NOTE | 2019-02-01 12:37 | HP ---
H&P (Free Text) History and Physical: ADDENDUM PHYSICAL EXAM OF H&P 01/01/19: NEURO: AAOx4. CN II-XII intact, SELLERS, sensation intact.
== END 2019-01-03 13:40 | DRG 551 ==
LOC: ED 17:45 → SSU 23:48
PROVIDERS: ADMIT Internal Medicine; ATTEND Internal Medicine
DX: S32.19XA Other fracture of sacrum, initial encounter for closed fracture (principal); S32.402A Unspecified fracture of left acetabulum, initial encounter for closed fracture; S32.502A Unspecified fracture of left pubis, initial encounter for closed fracture; I10 Essential (primary) hypertension; E78.5 Hyperlipidemia, unspecified; I49.5 Sick sinus syndrome; N40.1 Benign prostatic hyperplasia with lower urinary tract symptoms; R32 Unspecified urinary incontinence; M50.30 Other cervical disc degeneration, unspecified cervical region; M47.812 Spondylosis without myelopathy or radiculopathy, cervical region; W11.XXXA Fall on and from ladder, initial encounter; D69.6 Thrombocytopenia, unspecified; I48.0 Paroxysmal atrial fibrillation; E78.00 Pure hypercholesterolemia, unspecified; M15.0 Primary generalized (osteo)arthritis; H26.9 Unspecified cataract; Z79.01 Long term (current) use of anticoagulants; Y92.89 Other specified places as the place of occurrence of the external cause; Z80.8 Family history of malignant neoplasm of other organs or systems; Z85.46 Personal history of malignant neoplasm of prostate; Z72.89 Other problems related to lifestyle; Z23 Encounter for immunization; Z90.79 Acquired absence of other genital organ(s)
CPT/HCPCS: 36415; 70450; 71260; 72125; 72190; 74177; 80048; 80053; 80320; 81003; 82150; 82550; 83605; 83690; 83735; 84484; 85025; 85060; 85610; 86850; 86900; 86901; 90686; 93005; 96360; 99284; A9270-GY; G0480; G8978-GP-CJ; G8979-GP-CI; G8987-GO-CI; G8988-GO-CI; G8989-GO-CI; Q9967

== ENCOUNTER 2022-09-14 12:56 | Observation (INO) ==
[2022-09-14] MEDS ORDERED: Lactated Ringers 1000 ml BAG 1,000 ML IV ONE ×2 (14:03→17:59)
[2022-09-14 14:14] LABS: ABS Monocytes 1.1 10^3/uL (0.0-1.1); ABS Neutrophils 5.8 10^3/uL (1.5-7.6); ABS Nucleated RBC 0.01 10^3/ul; Hematocrit 42.3 % (38-53); Hemoglobin 14.6 g/dL (13.2-16.3); Lymphocyte % 13.1 %; Mean Corpuscular Hemoglobin 31.7 pg (27-33); Mean Corpuscular Hgb Conc 34.6 g/dL (31-36); Mean Corpuscular Volume 91.7 fL (80-97); Mean Platelet Volume 9.2 fL (7.5-11.2); Nucleated Red Blood Cells % 0.2 /100 WBC (0.0-0.4); Platelet Count 101 10^3/uL (150-450); Red Blood Count 4.62 10^6/uL (4.06-5.63); Red Cell Distribution Width 13.7 % (12-17)
[2022-09-14 14:30] LABS: Albumin 3.7 g/dL (3.2-5.2); Albumin/Globulin Ratio 1.1 (1-3); Calcium 8.8 mg/dL (8.6-10.3); Creatinine, Serum 2.46 mg/dL (0.67-1.17); Globulin 3.4 g/dL (2-4); Potassium 3.9 mmol/L (3.5-5.0); Total Bilirubin 0.9 mg/dL (0.2-1.0); Total Protein 7.1 g/dL (6.4-8.9); eGFR CKD-EPI 25.7 (>60)
[2022-09-14] MEDS ORDERED: oxyCODONE/Acetamin 5/325 mg TAB PO ONE (16:09)
[2022-09-14 17:39] LABS: Magnesium 2.3 mg/dL (1.9-2.7)
[2022-09-14 18:10] LABS: RBC Parasite Smear No Parasites Seen (No Parasite)
[2022-09-14 18:41] LABS: TSH Ultra Thyroid Stim Horm 4.76 mcIU/mL (0.34-5.60)
[2022-09-14 19:08] LABS: Urine Appearance Cloudy; Urine Bilirubin Negative (Negative); Urine Blood 2+ (Negative); Urine Color Yellow; Urine Glucose Negative (Negative); Urine Ketones Negative (Negative); Urine Nitrite Negative (Negative); Urine Protein 1+(30 mg/dL) (Negative); Urine Specific Gravity 1.009 (1.002-1.030); Urine Urobilinogen Negative (Negative)
[2022-09-14 19:17] LABS: Urine Bacteria Absent (Absent); Urine Red Blood Cell Trace(0-2/hpf) (Absent); Urine White Blood Cell Trace(0-5/hpf) (Absent)
[2022-09-14] MEDS: Lactated Ringers 1000 ml BAG 1,000 ML IV SCH (20:22)
[2022-09-14] MEDS: DOXYcycline 100 MG in NS 0.9% 250 ml 250 ML IVPB SCH (20:24)
[2022-09-15] MEDS: Lactated Ringers 1000 ml BAG 1,000 ML IV SCH (03:46)
[2022-09-15 07:32] LABS: ABS Lymphocytes 0.7 10^3/uL (1.0-4.8); ABS Nucleated RBC 0.01 10^3/ul; Eosinophil % 0.6 %; Hemoglobin 13.8 g/dL (13.2-16.3); Lymphocyte % 8.9 %; Mean Corpuscular Hgb Conc 35.3 g/dL (31-36); Mean Corpuscular Volume 90.7 fL (80-97); Nucleated Red Blood Cells % 0.1 /100 WBC (0.0-0.4); Red Cell Distribution Width 13.4 % (12-17); White Blood Count 7.7 10^3/uL (3.6-10.2)
[2022-09-15 07:44] LABS: Albumin 3.1 g/dL (3.2-5.2); Albumin/Globulin Ratio 1.1 (1-3); C Reactive Protein 97.88 mg/L (<8.01); Creatinine, Serum 1.27 mg/dL (0.67-1.17); Globulin 2.8 g/dL (2-4); Magnesium 1.9 mg/dL (1.9-2.7); Phosphorus 2.5 mg/dL (2.5-5.0); Total Bilirubin 0.8 mg/dL (0.2-1.0); Total Protein 5.9 g/dL (6.4-8.9); eGFR CKD-EPI 56.8 (>60)
[2022-09-15] MEDS: DOXYcycline 100 MG in NS 0.9% 250 ml 250 ML IVPB SCH ×2 (07:45→19:48)
[2022-09-15 08:30] LABS: Platelet Count 97 10^3/uL (150-450)
[2022-09-15] MEDS ORDERED: Lactated Ringers 1000 ml BAG 1,000 ML IV ONE (12:07)
[2022-09-16 07:15] LABS: Albumin 3.1 g/dL (3.2-5.2); Albumin/Globulin Ratio 1.2 (1-3); Calcium 8.2 mg/dL (8.6-10.3); Creatinine, Serum 1.02 mg/dL (0.67-1.17); Globulin 2.6 g/dL (2-4); Total Bilirubin 0.7 mg/dL (0.2-1.0); Total Protein 5.7 g/dL (6.4-8.9); eGFR CKD-EPI 73.8 (>60)
[2022-09-16] MEDS: DOXYcycline 100 MG in NS 0.9% 250 ml 250 ML IVPB SCH (08:50)
[2022-09-16 14:34] VITALS: BP 102/67
[2022-09-17 12:54] LABS: Anaplasma phagocytophilum Negative (Negative); B. miyamotoi PCR, B Negative (Negative); Babesia divergens/MO-1 Negative (Negative); Babesia ducani Negative (Negative); Ehrlichia chaffeensis Negative (Negative); Ehrlichia ewingii/canis Negative (Negative); Ehrlichia muris eauclairensis Negative (Negative)
== END 2022-09-16 15:50 | disposition home or self-care (01) ==
LOC: EDHOLD 12:56 → ED 12:56 → SUATTDRO 16:13 → MED 20:23
PROVIDERS: ADMIT Internal Medicine; ATTEND Internal Medicine